=== PATIENT | female | born 2000 | race Caucasian/White ===

== ENCOUNTER 2020-09-19 17:06 | Outpatient (CLI) | payer OTHER, SELFPAY ==
--- NOTE | ~2020-09-19 | XR_ITS ---
XR knee LT min 4V DATE: 09/19/2020 17:54 INDICATION: Anterior knee pain radiating down tibia and fibula TECHNIQUE: Standing sunrise, lateral and AP and PA views COMPARISON: None FINDINGS: No fracture or dislocation or joint effusion. Joint spaces are preserved. No radiopaque int ra-articular loose body or chondrocalcinosis. IMPRESSION: Negative Reviewed, dictated and finalized at location A. ECTIONS ASSOCIATE IMPRESSION: Negative
--- NOTE | ~2020-09-19 | XR_ITS ---
XR knee RT min 4V DATE: 09/19/2020 17:54 INDICATION: Anterior knee pain radiating down to lower leg TECHNIQUE: Kila and standing AP, PA and lateral views COMPARISON: None FINDINGS: No fracture or dislocation. Joint spaces are preserved. No radiopaque intra-articular loose body or chondrocalcinosis. No periosteal reaction or bone destruction. Minimal fluid in the suprapatellar bursa is suggested. IMPRESSION: Minimal suprapatellar knee joint effusion is suggested; otherwise negative Reviewed, dictated and finalized at location A. PACKER IMPRESSION: Minimal suprapatellar knee joint effusion is suggested; otherwise n egative
[2020-09-19 18:03] LABS: Anion Gap 5 mmol/L (8-16); Blood Urea Nitrogen 13 mg/dL (7-17); Calcium 9.6 mg/dL (8.4-10.2); Carbon Dioxide 31 mmol/L (22-30); Chloride 104 mmol/L (98-107); Estimated Glomerular Filt Rate > 60; Glucose 105 mg/dL (65-105); Potassium 4.6 mmol/L (3.4-5.0); Sodium 140 mmol/L (137-145)
[2020-09-19 18:06] LABS: Hemoglobin A1C 4.7 % (<5.7)
[2020-09-20 09:01] LABS: Rapid Plasma Reagin Non-Reactive (NonReactive)
== END 2020-09-19 17:07 | disposition home or self-care (01) ==
PROVIDERS: PCP Internal Medicine; Visit Provider Internal Medicine
DX: R20.2 Paresthesia of skin (principal); M25.569 Pain in unspecified knee
CPT/HCPCS: 36415; 73564; 80048; 82607; 83036; 84443; 86592

== ENCOUNTER 2023-05-31 10:40 | Emergency (ER) | payer OTHER, SELFPAY ==
[2023-05-31 10:45] VITALS: BP 135/71; PULSE 86; RESP 16; TEMP 36.7; O2SAT 100
[2023-05-31 12:07] LABS: Basophils Absolute Auto 0.1 K/mm3 (0.0-0.1); Basophils Percent Auto 0.9 % (0.2-1.2); Eosinophils Absolute Auto 0.1 K/mm3 (0-0.3); Eosinophils Percent Auto 2.2 % (0-4.4); Hematocrit 40.1 % (37.0-47.0); Hemoglobin 13.2 g/dL (12.0-15.0); Immature Granulocyte Absolute 0.01 K/mm3 (0.00-0.031); Immature Granulocyte Percent A 0.2 % (0-0.5); Lymphocytes Absolute Auto 1.43 K/mm3 (0.9-3.2); Lymphocytes Percent Auto 26.7 % (18.3-44.2); Mean Corpuscular HGB Conc 32.9 g/dl (32-36); Mean Corpuscular Hemoglobin 29.5 pg (26-34); Mean Corpuscular Volume 89.7 fl (80-100); Mean Platelet Volume 9.7 fl (7.4-10.4); Monocytes Absolute Auto 0.5 K/mm3 (0.1-0.6); Monocytes Percent Auto 9.5 % (2.6-8.5); Neutrophils Absolute Auto 3.2 K/mm3 (1.3-6.7); Neutrophils Percent Auto 60.5 % (45.5-73.1); Platelet Count Result 344 k/mm3 (150-375); Red Blood Count 4.47 M/mm3 (4.2-5.4); Red Cell Distribution Width 12.6 % (11.5-14.5); White Blood Count 5.4 K/mm3 (4.5-10.0)
[2023-05-31 12:17] LABS: Prothrombin Time 13.4 Seconds (11.1-14.7)
[2023-05-31 12:18] LABS: Partial Thromboplastin Time 27.7 SECONDS (22.3-36.8)
[2023-05-31 12:22] LABS: Alanine Aminotransferase 16 U/L (6-35); Albumin Level 4.5 g/dL (3.5-5.1); Alkaline Phosphatase 77 U/L (38-126); Anion Gap 8 mmol/L (8-16); Aspartate Amino Transferase 22 U/L (14-36); Bilirubin,Total 0.4 mg/dL (0.2-1.3); Blood Urea Nitrogen 14 mg/dL (7-17); Calcium 9.1 mg/dL (8.4-10.2); Carbon Dioxide 26 mmol/L (22-30); Chloride 105 mmol/L (98-107); Estimated CRCL calculation 107 ml/min; Estimated Glomerular Filt Rate > 60; Glucose 94 mg/dL (65-110); Potassium 3.8 mmol/L (3.4-5.0); Sodium 139 mmol/L (137-145)
[2023-05-31 12:37] LABS: Beta HCG Quantitative < 2.39 mIU/ML
--- NOTE | 2023-05-31 13:42 | ED.FEMALEGU ---
HPI - Female Genitourinary General Chief complaint: Vaginal Bleeding Stated complaint: vb Time Seen by Provider: 05/31/23 11:27 History of Present Illness HPI Narrative: Pt says she has had heavy vaginal bleeding and crampy lower abdominal julito for 2-3 days. Pt says she had some light spotting when she should have had her period on 05/17 but this resolved. Pt says the bleeding started and got heavier 2-3 days ago. Pt denies urinary symptoms. Related Data Allergies Allergy/AdvReac Type Severity Reaction Status Date / Time No Known Allergies Allergy Verified 05/31/23 11:09 Review of Systems Review of Systems: All systems reviewed & are unremarkable except as noted in HPI and below PMFSH Past Medical History Medical History History of chlamydia Family History Family History (Updated 02/19/22 @ 13:41 by Ashley King MA) Other Breast cancer Cerebrovascular accident Diabetes mellitus Heart disease Hypertension Social History Social History (Updated 02/19/22 @ 13:42 by Ashley King MA) Smoking status: Never smoker Alcohol intake: never Substance use: never Substance use type: does not use Living arrangements: with family Occupation/Education: occupation 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 Gender identity (if verbalized by the patient): Female Sexual Orientation (if Verbalized by the Patient): Straight or Heterosexual Exam Const: General: healthy appearing and no acute distress Nutritional Appearance: well nourished Orientation/consciousness: patient oriented x3 Limitations: no limitations Chest: Chest palpation & inspection: normal inspection of the chest Resp: Effort & Inspection: normal respiratory effort Auscultation: clear to auscultation bilaterally Cardio: Rate: regular rate Rhythm: regular rhythm GI: GI Palp: Yes Soft to palpation and Yes Tenderness to palpation present (GI) (minimal suprapubic) Auscultation: normal bowel sounds : Speculum Exam - Vagina: normal appearance of the vagina and vaginal bleeding (mild with some clots) Speculum Exam - Cervix: normal appearance of the cervix and Cervical os closed Bimanual Exam- Adnexa, other: no masses Skin: General skin exam: normal color Rashes: no rashes Neuro: General: patient oriented x3, moves all extremities, no meningeal signs and no focal motor deficits Cranial nerves: Yes Nystagmus not present Speech: normal speech Extrem: General: normal to inspection and no clubbing, cyanosis or edema Psych: Appearance: grossly normal Mental Status: mental status grossly normal Affect: normal affect Attitude: cooperative Course Vital Signs Vital signs: Vital Signs Temperature 98.0 F 05/31/23 10:45 Pulse Rate 86 05/31/23 10:45 Respiratory Rate 16 05/31/23 10:45 Blood Pressure 135/71 05/31/23 10:45 Pulse Oximetry 100 05/31/23 10:45 Oxygen Delivery Room Air 05/31/23 10:45 Temperature 98.0 F 05/31/23 10:45 Pulse Rate 67 05/31/23 13:50 Respiratory Rate 18 05/31/23 13:50 Blood Pressure 105/66 05/31/23 13:50 Pulse Oximetry 100 05/31/23 13:50 Oxygen Delivery Room Air 05/31/23 10:45 MDM - Female Genitourinary MDM Narrative Medical decision making narrative: HCG neg labs look ok Differential Diagnosis Differential diagnosis: Likely urinary tract infection, ovarian cyst, vaginitis, dysmenorrhea and other (ectopic ) Lab Data Attestation: I reviewed the patient's lab results. 05/31/23 11:59 05/31/23 11:59 Labs: Lab Results 05/31/23 Range/Units 11:59 WBC 5.4 (4.5-10.0) K/mm3 RBC 4.47 (4.2-5.4) M/mm3 Hgb 13.2 (12.0-15.0) g/dL Hct 40.1 (37.0-47.0) % MCV 89.7 (80-100) fl MCH 29.5 (26-34) pg MCHC 32.9 (32-36) g/dl RDW 12.6 (11.5-14.5) % Plt Count 344 (150-375) k/mm3 MPV 9.7 (7.4-10.4) fl Immature Gran % (Auto) 0.2
[2023-05-31 13:50] VITALS: BP 105/66; PULSE 67; RESP 18; O2SAT 100
== END 2023-05-31 13:51 | disposition home or self-care (01) ==
PROVIDERS: Emergency Provider Emergency Medicine
DX: N93.9 Abnormal uterine and vaginal bleeding, unspecified (principal)
CPT/HCPCS: 36415; 80053; 84702; 85025; 85610; 85730; 99283

== ENCOUNTER → 2023-07-10 07:25 | Outpatient (CLI) | payer OTHER, SELFPAY ==
--- NOTE | ~2023-07-10 | US_ITS ---
Pelvic ultrasound. Clinical History: Abnormal uterine bleeding Technique: Realtime transabdominal and transvaginal scanning of the pelvis was performed. Color flow Doppler and Doppler spectral analysis were performed. Findings: The uterus is anteverted. The endometrial stripe has a thickness of 6 mm. Questionable arc uate or septate uterus. No focal mass is identified. The right ovary measures 2.8 x 2.8 x 1 point cm. No significant right ovarian or adnexal mass is see n. The left ovary measures 4.3 x 3.6 x 3.0 cm. Left ovarian cyst measures approximately 2.8 cm in diamet er. There is no evidence of free fluid in the cul de sac. Impression: 2.8 cm left ovarian cyst. Questionable arcuate or septate uterus. Reviewed, dictated and finalized at location . Impression: 2.8 cm left ovarian cyst. Questionable arcuate or septate uterus.
== END ==
PROVIDERS: PCP Advanced Practice Midwife; Visit Provider Advanced Practice Midwife
DX: N93.8 Other specified abnormal uterine and vaginal bleeding (principal); R10.2 Pelvic and perineal pain; N83.202 Unspecified ovarian cyst, left side
CPT/HCPCS: 76856

== ENCOUNTER 2024-09-22 13:44 | Outpatient (CLI) | payer OTHER, SELFPAY ==
--- NOTE | ~2024-09-22 | US_ITS ---
EXAMINATION: US pelvic complete w TV DATE: 09/22/2024 14:52 INDICATION: Pelvic and perineal pain TECHNIQUE: Multiple transabdominal and endovaginal sonographic images of the pelvis were obtained. COMPARISON: None. FINDINGS: The uterus measures 7.3 x 2.9 x 6.1 cm. The endometrial complex measures 6 mm in thickness. There is 11 mm indentation of the central portion of the fundal margin of the endometrial complex consistent with a septate uterus. The right ovary measures 3.0 x 1.7 x 1.9 cm. The left ovary measures 3.6 x 2.3 x 3.1 cm. 2.6 x 2.4 x 2.3 cm very hypoechoic likely complex cystic lesion in the left ovary without internal vascular flow on color Doppler and with mild posterior acoustic enhancement. Vascular flow i dentified in both ovaries on color Doppler. There is no free fluid in the pelvis. IMPRESSION: 1. Septate uterus with 11 mm indentation of the chondral margin of the endometrial canal. 2. 2.6 cm hypoechoic left ovarian lesion most likely a hemorrhagic cyst. Consider 6-12 week follow-up ultrasound to document resolution. Reviewed, dictated and finalized at location B. OL SPEECH THERAPIST IMPRESSION: 1. Septate uterus with 11 mm indentation of the chondral margin of the endometr ial canal. 2. 2.6 cm hypoechoic left ovarian lesion most likely a hemorrhagic cyst. Consid er 6-12 week follow-up ultrasound to document resolution.
== END 2024-09-22 13:45 | disposition home or self-care (01) ==
PROVIDERS: Visit Provider Obstetrics & Gynecology
DX: R10.2 Pelvic and perineal pain (principal)
CPT/HCPCS: 76830; 76856

== ENCOUNTER 2024-10-20 15:31 | Outpatient (CLI) | payer OTHER, SELFPAY ==
--- NOTE | ~2024-10-20 | MR_ITS ---
EXAMINATION: MR pelvis wo/w con DATE: 10/20/2024 16:44 INDICATION: Septate uterus. TECHNIQUE: Magnetic resonance imaging (MRI) of the pelvis was performed without and with 14 mL MultiH ance intravenous contrast. COMPARISON: Ultrasound 09/22/2024, 07/10/2023 FINDINGS: There are no dilated loops of bowel. The ovaries are normal. The uterine fundus has a convex outer co ntour. In the fundus, the myometrium dips 11 mm into the endometrial complex, consistent with an arcu ate uterus. The endometrial complex measures 9 mm in thickness. There is physiologic fluid in the pel vis. There are no pathologically enlarged lymph nodes. IMPRESSION: 1. Arcuate uterus. Reviewed, dictated and finalized at location A. NEERING INTERN IMPRESSION: 1. Arcuate uterus.
--- OUTSIDE RECORDS SUMMARY | 2024-10-24 01:52 | XMS_ITS | Clinical Summary ---
Author Organization [facility] Address [address] [place] [address] Phone Care Team Providers Care Forest Resources Professor Name Role Phone Provider, None Primary Care Provider Unavailabl e Allergies No known active allergies Medications ondansetron (ZOFRAN-ODT) 4 MG TABLET DISPERSIBLE Take 1 Tablet by mouth every 8 hours as needed for Nausea - 1st line. 10 Tablet 02/02/2024 Active Social History Tobacco Use Types Packs/Day Years Used Date Smoking Tobacco: Never Smokeless Tobacco: Never Tobacco Cessation:Counseling Given: Not Answered Alcohol Use Standard Drinks/Week Comments Never 0 (1 standard drink = 0.6 oz pur e alcohol) Comments Unknown Sex and Gender Information Value Date Recorded Sex Assigned at Not on file Legal Sex Female 7:16 PM CDT Gender Identity Not on file Sexual Orientation Not on file Last Filed Vital Signs Vital Sign Reading Time Taken Comments Blood Pressure 125/68 02/02/2024 7:32 PM CDT Pulse 83 02/02/2024 7:32 PM CDT Temperature 37.2 ??C (99 ??F) 02/02/2024 7:32 PM CDT Respiratory Rate 19 02/02/2024 7:32 PM CDT Oxygen Saturation 99% 02/02/2024 7:32 PM CDT Inhaled Oxygen Concentration - - Weight 65.8 kg (145 lb) 02/02/2024 7:32 PM CDT Height 152.4 cm (5') 02/02/2024 7:32 PM CDT Body Mass Index 28.32 02/02/2024 7:32 PM CDT Plan of Treatment Health Maintenance Due Date Last Done Comments Hepatitis C Virus (HCV) Screening 1999 Pap Smear 2020 Influenza Immunization (#1) 2024 01/0 07/2024, 08/26/2018, 09/08/2017, Additional history exists SARS-COV-2 Immunization (2023- season) 2024 Respiratory Syncytial Virus (RSV) Immunization (Adult) (1 - 1-dose 75+ series) 2074 Pneumococcal Immunization Combined Aged Out 09/27/2000, 06/04/2000, 05/04/2000 No longer eligible based on patient's age to complete this topic Hepatitis B Immunization Completed 009, 05/04/2000, 04/03/2000, Additional history exists DTaP/Tdap/Td Immunization Discontinued 2009, 04/21/2004, 03/21/2001, Additional history exists TdaP Immunization Completed 06/16/2010 Human Papillomavirus (HPV) Immunization Completed 09/13/2015, 09/04/2013, 07/03/2013 Meningococcal Immunization (ACWY) Completed 09/13/2015, 07/03/2013 Rotavirus Immunization Aged Out No lo nger eligible based on patient's age to complete this topic Insurance Care Teams Forest Resources Professor Relationship Specialty Start Date End Date Provider, None MA PCP - General 02/02/24
--- OUTSIDE RECORDS SUMMARY | 2024-10-24 01:52 | XMS_ITS | Clinical Summary ---
Author Organization [facility] Address [address] [place] [address] Care Team Providers Care Electrician Supervisor Substation Name Role Phone Verito Aguilar MD Primary Care Provider [phone] Source Comments [facility],non-owned Affiliates and Associated Physician Practices is amultiple site organization consisting of ambulatory clinics and hospital sitesin [place], [place] and [place]. This disclosure is being madepursuant to the Care Everywhere program and may not contain all information available regarding this patient. Last updated 18.[facility] Allergies No known active allergies Medications * Be aware that medications may not be up to date on this document. Alwaysverify current medications with the patient. Medication Sig Dispensed Refills Start Date End Date Status albuterol HFA (PROVENTIL;VENTOLIN; PROAIR) 108 (90 Base) MCG/ACT inhaler Inhale 2 puffs by mouth every 4 hours as needed 1 Inhaler 01/23/2020 Active albuterol (PROVENTIL;VENTOLIN) (2.5 MG/3ML) 0.083% nebulizer solution Inhale 2.5 mg by mouth every 4 hours as needed for Shortness of Breath 25 vial 01/23/2020 Active SUMAtriptan Succinate (IMITREX PO) Active Ibuprofen (MOTRIN PO) Active Social History Tobacco Use Types Packs/Day Years Used Date Smoking Tobacco: Never Smokeless Tobacco: Never Sex and Gender Information Value Date Recorded Sex Assigned at Not on file Gender Identity Not on file Sexual Orientation Not on file Last Filed Vital Signs Vital Sign Reading Time Taken Comments Blood Pressure 104/60 07/03/2020 9:37 AM CDT Pulse 95 07/03/2020 9:37 AM CDT Temperature 37.3 ??C (99.1 ??F) 07/03/2020 9:37 AM CD T Respiratory Rate 16 07/03/2020 9:37 AM CDT Oxygen Saturation 97% 07/03/2020 9:37 AM CDT Inhaled Oxygen Concentration - - Weight 59 kg (130 lb) 07/03/2020 9:37 AM CDT Height 152.4 cm (5') 07/03/2020 9:37 AM CDT Body Mass Index 25.39 07/03/2020 9:37 AM CDT Plan of Treatment Health Maintenance Due Date Last Done Comments PAP SMEAR 1999 HIV SCREENING 2014 HPV VACCINE (1 - 3-dose series) 2014 CHLAMYDIA/GONORRHEA SCREENING 2015 HEPATITIS C SCREENING 06/20/2017 DTAP/TDAP/TD VACCINES (1 - Tdap) 2018 HEPATITIS B VACCINE (1 of 3 - 19+ 3-dose series) 2018 DEPRESSION SCREENING 11/08/2023 COVID-19 VACCINE (1 - 2023-2 5 season) 2024 INFLUENZA VACCINE (#1) 2024 09/08/2017 ZOSTER VACCINE (1 of 2) 2049 HIB VACCINE Aged Out No longer eligi ble based on patient's age to complete this topic MENINGOCOCCAL VACCINE Aged Out No nilesh edinson eligible based on patient's age to complete this topic PNEUMOCOCCAL VACCINE Aged Out No long er eligible based on patient's age to complete this topic Care Teams Electrician Supervisor Substation Relationship Specialty Start Date End Date Verito Aguilar MD PCP - General Internal Medicine 8/26/20
--- OUTSIDE RECORDS SUMMARY | 2024-10-24 01:52 | XMS_ITS | Encounter Summary ---
Author Organization [facility] Address [facility] [place] [address] Care Team Providers Care Manager Collection Name Role Phone Abiel Sharp MD Primary Care Provider [phone] Reason for Visit * Reason Onset Date Comments Returned Call 01/25/2020 Encounter Details Date Type Department Care Team (Late st Contact Info) Description 01/25/2020 Telephone [facility] [address] [place] [address] Nancy Law APRN-CNP [address] [place] [address] Returned Call Social History Tobacco Use Types Packs/Day Years Used Date Smoking Tobacco: Never Smokeless Tobacco: Never Sex and Gender Information Value Date Recorded Sex Assigned at Not on file Gender Identity Not on file Sexual Orientation Not on file documented as of this encounter Miscellaneous Notes * Telephone Encounter - Nancy Aguilar APRN-CNP - 01/25/2020 3:08 PM CDT Patient states she is using her inhaler more than ever before, and she has been feeling worse sincetaking the abx and inhaler. She states she does have asthma, and nothing is getting better. Advisedpatient to been seen in the ER for further testing and evaluation, and possible COVID-19 testing. Patient verbalized understanding documented in this encounter Plan of Treatment Not on file documented as of this encounter Visit Diagnoses Not on filedocumented in this encounter Care Teams Manager Collection Relationship Specialty Start Date End Date Abiel Sharp MD [address] [id number] PCP - General Pediatrics 06/18/18 07/02/20 documented as of this encounter
--- OUTSIDE RECORDS SUMMARY | 2024-10-24 01:52 | XMS_ITS | Encounter Summary ---
Author Organization [facility] Address [facility] [place] [address] Care Team Providers Care Regional Safety Manager Name Role Phone Abiel Sharp MD Primary Care Provider [phone] Reason for Visit * Reason Onset Date Comments Follow-up 01/25/2020 Encounter Details Date Type Department Care Team (Late st Contact Info) Description 01/25/2020 Telephone [facility] [address] [place] [id number] Nancy Law APRN-CNP [address] [place] [address] Follow-up Social History Tobacco Use Types Packs/Day Years Used Date Smoking Tobacco: Never Smokeless Tobacco: Never Sex and Gender Information Value Date Recorded Sex Assigned at Not on file Gender Identity Not on file Sexual Orientation Not on file documented as of this encounter Miscellaneous Notes * Telephone Encounter - Nancy Aguilar APRN-CNP - 01/25/2020 11:08 AM CDT Courtesy follow-up phone call made to patient. Message left advising patient to call service [facility] [phone] if they have any questions or concerns. ONEAL Hdz 01/25/2020 11:09 AM documented in this encounter Plan of Treatment Not on file documented as of this encounter Visit Diagnoses Not on filedocumented in this encounter Care Teams Regional Safety Manager Relationship Specialty Start Date End Date Abiel Sharp MD [address] [id number] PCP - General Pediatrics 06/18/18 07/02/20 documented as of this encounter
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
--- OUTSIDE RECORDS SUMMARY | 2024-10-24 01:52 | XMS_ITS | Encounter Summary ---
Author Organization [facility] Address [facility] [place] [address] Care Team Providers Care Radio Division Officer Name Role Phone Verito Aguilar MD Primary Care Provider [phone] Reason for Visit * Reason Onset Date Comments Follow-up 07/05/2020 Encounter Details Date Type Department Care Team (Late st Contact Info) Description 07/05/2020 Telephone [facility] [address] [place] [address] Nancy Law APRN-CNP [address] [place] [address] Follow-up Social History Tobacco Use [...] AM CDT documented as of this encounter Miscellaneous Notes * Telephone Encounter - Nancy Aguilar APRN-CNP - 07/05/2020 4:00 PM CDT Courtesy follow-up phone call made to patient. She states she is feeling a lot better than before. Advised her to call service center at [phone] if she has any further questions or concerns. ONEAL Hdz 07/05/2020 4:01 PM documented in this encounter Plan of Treatment Not on file documented as of this encounter Visit Diagnoses Not on filedocumented in this encounter Care Teams Radio Division Officer Relationship Specialty Start Date End Date Verito Aguilar MD PCP - General Internal Medicine 07/03/20 documented as of this encounter
--- OUTSIDE RECORDS SUMMARY | 2024-10-24 01:52 | XMS_ITS | Encounter Summary ---
Author Organization [facility] Address [facility] [place] [address] Care Team Providers Care Gearman Name Role Phone Abiel Sharp MD Primary Care Provider [phone] Encounter Details Date Type Department Care Team (Latest Contact Info) Description 07/02/2020 Travel Social History Tobacco Use Types Packs/Day Years [...] have Coronavirus / COVID-19? No / Unsure 07/02/2020 4:04 PM CDT documented as of this encounter Plan of Treatment Not on file documented as of this encounter Visit Diagnoses Not on filedocumented in this encounter Care Teams Gearman Relationship Specialty Start Date End Date Abiel Sharp MD [address] [address] PCP - General Pediatrics 06/18/18 07/02/20 documented as of this encounter
--- OUTSIDE RECORDS SUMMARY | 2024-10-24 01:52 | XMS_ITS | Encounter Summary ---
Author Organization [facility] Address [facility] [facility] [place] [address] Care Team Providers Care Supervisor Production Name Role Phone Abiel Sharp MD Primary Care Provider [phone] Reason for Visit * Reason Comments Cough Encounter Details Date Type Department Care Team (Late st Contact Info) Description 01/23/2020 11:40 AM CDT Office Visit [facility] AT [address] [address] Provider, Alexia Exp Tomyriaz Mild intermittent asthma with acute exacerbation (HCC) (Primary Dx); Acute non-recurrent maxillary sinusitis Social History Tobacco Use Types Packs/Day Years Used Date Smoking Tobacco: Never Smokeless Tobacco: Never Sex and Gender Information Value Date Recorded Sex Assigned at Not on file Gender Identity Not on file Sexual Orientation Not on file documented as of this encounter Last Filed Vital Signs Vital Sign Reading Time Taken Comments Blood Pressure 100/64 01/23/2020 11:51 AM CDT Pulse 85 01/23/2020 11:51 AM CDT Temperature 37.3 ??C (99.2 ??F) 01/23/2020 11:51 AM C DT Respiratory Rate 16 01/23/2020 11:51 AM CDT Oxygen Saturation 98% 01/23/2020 11:51 AM CDT Inhaled Oxygen Concentration - - Weight 56.7 kg (125 lb) 01/23/2020 11:51 AM CDT Height 152.4 cm (5') 01/23/2020 11:51 AM CDT Body Mass Index 24.41 01/23/2020 11:51 AM CDT documented in this encounter Patient Instructions * Patient Instructions* Neida Rodríguez, FACTORY LAY OUT ENGINEER-[employer]EDGE BOAT CAPTAIN - 01/23/2020 11:59 AM CDT Images from the original note were not included. Drink plenty of fluids to help thin secretions. May take Tylenol or Ibuprofen for fever or pain as directed per package instructions Recommend daily use of OTC intranasal saline irrigation per package instructions May take OTC antihistamines such as Zyrtec, Lesli, or Claritin as directed per package instructions, for runny nose or allergy symptoms Follow up with Abiel Sharp MD if symptoms worsen or do not completely resolve. GO TO EMERGENCY ROOM OR CALL 911 WITH ANY OF THE FOLLOWING SYMPTOMS: HIGH, PERSISTENT FEVER >102; SWELLING, INFLAMMATION, OR REDNESS AROUND EYES, ABNORMAL EYE MOVEMENTS, VISION CHANGES (DOUBLE VISION OR IMPAIRED VISION); SEVERE HEADACHE; ALTERED MENTAL STATUS. THESE ARE SIGNS OF A RARE, BUT SERIOUS COMPLICATION AND REQUIRES IMMEDIATE EMERGENCY ATTENTION. Patient Education Asthma PERSONNEL COORDINATOR: Asthma is a lung disease that makes breathing difficult. Chronic inflammation and reactions to triggers narrow the airways in your lungs. Asthma can become life-threatening if it is not managed. Cough-variant asthma is a type of asthma that causes a dry cough that keeps coming back. A dry cough may be your only symptom, or you may also have chest tightness. These symptoms may be caused by exercise or exposure to odors, allergens, or respiratory tract infections. Cough-variant asthma is treated the same way as typical asthma. Common symptoms include the following: ?? Coughing ?? Wheezing ?? Shortness of breath ?? Chest tightness Call your local emergency number (911 in the ) if: ?? You have severe shortness of breath. ?? Your lips or nails turn blue or dawkins. ?? The skin around your neck and ribs pulls in with each breath. ?? You have shortness of breath, even after you take your short-term medicine as directed. ?? Your peak flow numbers are in the red zone of your AAP. Call your doctor if: ?? You run out of medicine before your next refill is due. ?? Your symptoms get worse. ?? You need to take more medicine than usual to control your symptoms. ?? You have questions or concerns about your condition or care. Treatment for asthma will depend on how severe your asthma is. Medicine may decrease inflammation, open airways, and make it easier to breathe. Medicines may be inhaled, taken as a pill, or injected.Short-term medicines relieve your symptoms quickly. Long-term medicines are used to prevent future attacks. You may also need medicine to help control your allergies. Manage and prevent future asthma attacks: ?? Follow your asthma action plan. This is a written plan that you and your healthcare provider create. It explains which medicine you need and when to change doses if necessary. It also explains howyou can monitor symptoms and use a peak flow meter. The meter measures how well your lungs are working. ?? Manage other health conditions , such as allergies, acid reflux, and sleep apnea. ?? Identify and avoid triggers. These may include pets, dust mites, mold, and cockroaches. ?? Do not smoke or be around others who smoke. Nicotine and other chemicals in cigarettes and cigars can cause lung damage. Ask your healthcare provider for information if you currently smoke and need help to quit. E-cigarettes or smokeless tobacco still contain nicotine. Talk to your healthcare provider before you use these products. ?? Ask about the flu vaccine. The flu can make your asthma worse. You may need a yearly flu shot. Follow up with your healthcare provider as directed: You will need to return to make sure your medicine is working and your symptoms are controlled. You may be referred to an asthma or data review specialist. You may be asked to keep a record of your peak flow values and bring it with you to your appointments. Write down your questions so you remember to ask them during your visits. ?? Copyright [employer] 2019 Information is for End User's use only and may not be sold, redistributed or otherwise used for commercial purposes. All illustrations and images included in CareNotes?? are the copyrighted property of [employer]. or [employer] The above information is an health care aide only. It is not intended as medical advice for individual conditions or treatments. Talk to your doctor, nurse or pharmacist before following any medical regimen to see if it is safe and effective for you. Patient Education Sinusitis PERSONNEL COORDINATOR: Sinusitis is inflammation or infection of your sinuses. It is most often caused by a virus. Acute sinusitis may last up to 12 weeks. Chronic sinusitis lasts longer than 12 weeks. Recurrent sinusitis means you have 4 or more times in 1 year. Common symptoms include the following: ?? Fever ?? Pain, pressure, redness, or swelling around the forehead, cheeks, or eyes ?? Thick yellow or green discharge from your nose ?? Tenderness when you touch your face over your sinuses ?? Dry cough that happens mostly at night or when you lie down ?? Headache and face pain that is worse when you lean forward ?? Tooth pain, or pain when you chew Seek care immediately if: ?? Your eye and eyelid are red, swollen, and painful. ?? You cannot open your eye. ?? You have vision changes, such as double vision. ?? Your eyeball bulges out or you cannot move your eye. ?? You are more sleepy than normal, or you notice changes in your ability to think, move, or talk. ?? You have a stiff neck, a fever, or a bad headache. ?? You have swelling of your forehead or scalp. Contact your healthcare provider if: ?? Your symptoms do not improve after 3 days. ?? Your symptoms do not go away after 10 days. ?? You have nausea and are vomiting. ?? Your nose is bleeding. ?? You have questions or concerns about your condition or care. Treatment for sinusitis: Your symptoms may go away on their own. Your healthcare provider may recommend watchful waiting for up to 10 days before starting antibiotics. You may need any of the following: ?? Acetaminophen decreases pain and fever. It is available without a doctor's order. Ask how much to take and how often to take it. Follow directions. Read the labels of all other medicines you are using to see if they also contain acetaminophen, or ask your doctor or pharmacist. Acetaminophen can cause liver damage if not taken correctly. Do not use more than 4 grams (4,000 milligrams) total of acetaminophen in one day. ?? NSAIDs , such as ibuprofen, help decrease swelling, pain, and fever. This medicine is available with or without a doctor's order. NSAIDs can cause stomach bleeding or kidney problems in certain people. If you take blood thinner medicine, always ask your healthcare provider if NSAIDs are safe foryou. Always read the medicine label and follow directions. ?? Nasal steroid sprays may help decrease inflammation in your nose and sinuses. ?? Decongestants help reduce swelling and drain mucus in the nose and sinuses. They may help you breathe easier. ?? Antihistamines help dry mucus in the nose and relieve sneezing. ?? Antibiotics help treat or prevent a bacterial infection. ?? Take your medicine as directed. Contact [...] nasal passages with a saline (salt water) solution or distilled water. Do not use tap water. This will help thin the mucus in [...] healthcare provider before you use these products. Prevent the spread of germs that cause sinusitis: Wash your hands often with soap and water. Wash your hands after you use the bathroom, change a child's diaper, or sneeze. Wash your hands before youprepare or eat food. Follow up with your healthcare provider as directed: You may be referred to an ear, nose, and throat specialist. Write down your questions so you remember to ask them during your visits. ?? Copyright [employer] 2018 Information is for End User's use only and may not be sold, redistributed or otherwise used for commercial purposes. All illustrations and images included in CareNotes?? are the copyrighted property of [employer]. or [employer] The above information is an health care aide only. It is not intended as medical advice for individual conditions or treatments. Talk to your doctor, nurse or pharmacist before following any medical regimen to see if it is safe and effective for you. documented in this encounter Progress Notes * Neida Rodríguez APRN-CNP - 01/23/2020 11:48 AM CDT Images from the original note were not included. Subjective: James Gardner is a 19 year old female who presents to clinic today for Chief Complaint Patient presents with ??? Cough . James Gardner is here for evaluation of post nasal drip, non productive cough. PCP is Abiel Sharp MD. She states the Onset was: 2 days and course is gradually worsening. She is drinking plenty of fluids.. Past History of asthma. She is a non-smoker. The pain is described as none, and is 0/10 in intensity. OTC- none. Sick Contacts: No known sick contacts. Patient states she has been out of her inhaler and neb soln for awhile. Patient states she has had post nasal drainage and mild wheezing. Patient also states she has had congestion, MURILLO, and sinus pain for 2-3 weeks. Patient denies any recent travel or contact with any individuals with known or suspected COVID-19 Past Medical History: Diagnosis Date ??? Asthma ??? MRSA (methicillin resistant staph aureus) culture positive ??? Murmur, cardiac ??? Seasonal allergies No family history on file. Current Outpatient Medications Medication Sig Dispense Refill ??? albuterol (PROVENTIL;VENTOLIN) (2.5 MG/3ML) 0.083% nebulizer solution Inhale 2.5 mg by mouth every 4 hours as needed for Shortness of Breath 25 vial 0 ??? albuterol HFA (PROVENTIL;VENTOLIN;PROAIR) 108 (90 Base) MCG/ACT inhaler Inhale 2 puffs by mouthevery 4 hours as needed 1 Inhaler 0 ??? ALBUTEROL IN ??? amoxicillin-clavulanate (AUGMENTIN) 875-125 MG tablet Take 1 tablet by mouth 2 times daily withmorning and evening meal for 7 days 20 tablet 0 ??? Famotidine (PEPCID PO) No current facility-administered medications for this visit. No Known Allergies Social History Socioeconomic History ??? Marital status: [...] file Gets together: Not on file Attends [employer] service: Not on file Active member of [...] Social History Narrative ??? Not on file Review of Systems Constitutional: Negative for fatigue, fevers, chills, malaise. Eyes: Negative Ears, nose, mouth, and throat: Positive for post nasal drainage, sinus pain, congestion Respiratory: Positive for acute cough, asthma, wheezing Cardiovascular: Negative Hematologic/lymphatic: Negative Objective: BP 100/64 Pulse 85 Temp 99.2 ??F (37.3 ??C) Resp 16 Ht 1.524 m (5') Wt 56.7 kg (125 lb) SpO2 98% BMI 24.41 kg/m2 General appearance: alert, cooperative, no distress, oriented to person, place, and time Head: normocephalic, without trauma Eyes: sclera and conjunctiva clear Ears: canals clear, tympanic membranes normal, hearing intact to voice Nose: nares open; no septal deviation is noted, nasal mucosa not inflamed, clear rhinorrhea, maxillary sinus pain on right Throat: no mucous membrane abnormalities, post nasal drainage present Neck: supple Nodes: mild, benign-appearing anterior cervical adenopathy Lungs: breath sounds normal and symmetric; no rales or wheezes Heart: regular rhythm, normal S1 and S2, without murmurs, gallops or rubs Assessment: Encounter Diagnoses Name Primary? Mild intermittent asthma with acute exacerbation Yes ??? Acute non-recurrent maxillary sinusitis Plan: Albuterol inhaler and nebulizer soln refilled Keep appointment with new PCP for end of February Drink plenty of fluids to help thin secretions. May take Tylenol or Ibuprofen for fever or pain as directed per package instructions Recommend daily use of OTC intranasal saline irrigation per package instructions May take OTC antihistamines such as Zyrtec, Lesli, or Claritin as directed per package instructions, for runny nose or allergy symptoms Reviewed education materials and instructions with patient and answered all questions. James Gardner verbalized understanding and agrees with plan. Follow up with Abiel Sharp MD if symptoms worsen or do not completely resolve. GO TO EMERGENCY ROOM OR CALL 911 WITH ANY OF THE FOLLOWING SYMPTOMS: HIGH, PERSISTENT FEVER >102; SWELLING, INFLAMMATION, OR REDNESS AROUND EYES, ABNORMAL EYE MOVEMENTS, VISION CHANGES (DOUBLE VISION OR IMPAIRED VISION); SEVERE HEADACHE; ALTERED MENTAL STATUS. THESE ARE SIGNS OF A RARE, BUT SERIOUS COMPLICATION AND REQUIRES IMMEDIATE EMERGENCY ATTENTION. Orders Placed This Encounter ??? albuterol HFA (PROVENTIL;VENTOLIN;PROAIR) 108 (90 Base) MCG/ACT inhaler Sig: Inhale 2 puffs by mouth every 4 hours as needed Dispense: 1 Inhaler Refill: 0 ??? albuterol (PROVENTIL;VENTOLIN) (2.5 MG/3ML) 0.083% nebulizer solution Sig: Inhale 2.5 mg by mouth every 4 hours as needed for Shortness of Breath Dispense: 25 vial Refill: 0 ??? amoxicillin-clavulanate (AUGMENTIN) 875-125 MG tablet Sig: Take 1 tablet by mouth 2 times daily with morning and evening meal for 7 days Dispense: 20 tablet Refill: 0 Neida Rodríguez DNP, SATELLITE SPECIALIST-BC 01/23/2020 1:45 PM documented in this encounter Plan of Treatment Not on file documented as of this encounter Visit Diagnoses Diagnosis Mild intermittent asthma with acute exacerbation (HCC)- Primary Unspecified asthma, with exacerbation Acute non-recurrent maxillary sinusitis documented in this encounter Care Teams Supervisor Production Relationship Specialty Start Date End Date Abiel Sharp MD [address] [id number] PCP - General Pediatrics 06/18/18 07/02/20 documented as of this encounter
--- OUTSIDE RECORDS SUMMARY | 2024-10-24 01:52 | XMS_ITS | Encounter Summary ---
Author Organization [facility] Health Address [facility] [place] [address] Care Team Providers Care Comsec Manager Name Role Phone Verito Aguilar MD Primary Care Provider [phone] Encounter Details Date Type Department Care Team (Latest Contact Info) Description 07/03/2020 Travel Social History Tobacco Use Types Packs/Day [...] AM CDT documented as of this encounter Plan of Treatment Not on file documented as of this encounter Visit Diagnoses Not on filedocumented in this encounter Care Teams Comsec Manager Relationship Specialty Start Date End Date Verito Aguilar MD PCP - General Internal Medicine 07/03/20 documented as of this encounter
--- OUTSIDE RECORDS SUMMARY | 2024-10-24 01:52 | XMS_ITS | Encounter Summary ---
Author Organization [facility] Address [address] [place] [address] Care Team Providers Care Geophysical Laboratory Supervisor Name Role Phone Abiel Sharp MD Primary Care Provider [phone] Reason for Visit * Reason Onset Date Comments Returned Call 01/25/2020 Encounter Details Date Type Department Care Team (Late st Contact Info) Description 01/25/2020 Telephone [facility] [address] [place] [address] Provider, Alexia Exp Nameoki Returned Call Social History Tobacco Use Types Packs/Day Years Used Date Smoking Tobacco: Never Smokeless Tobacco: Never Sex and Gender Information Value Date Recorded Sex Assigned at Not on file Gender Identity Not on file Sexual Orientation Not on file documented as of this encounter Miscellaneous Notes * Telephone Encounter - Nancy Aguilar APRN-CNP - 01/25/2020 2:58 PM CDT Returned all no answer. Left message * Telephone Encounter - Laura Valencia - 01/25/2020 1:32 PM CDT Pt is returning call and has some questions. documented in this encounter Plan of Treatment Not on file documented as of this encounter Visit Diagnoses Not on filedocumented in this encounter Care Teams Geophysical Laboratory Supervisor Relationship Specialty Start Date End Date Abiel Sharp MD [address] [facility] [address] [place] [address] PCP - General Pediatrics 06/18/18 07/02/20 documented as of this encounter
--- OUTSIDE RECORDS SUMMARY | 2024-10-24 01:52 | XMS_ITS | Encounter Summary ---
Author Organization [facility] Health Address [facility] [facility] [place] [address] Care Team Providers Care Life Agent Name Role Phone Abiel Sharp MD Primary Care Provider Encounter Details Date Type Department Care Team (Latest Contact Info) Description 01/23/2020 Travel Social History Tobacco Use Types Packs/Day Years Used Date Smoking Tobacco: Never Smokeless Tobacco: Never Sex and Gender Information Value Date Recorded Sex Assigned at Not on file Gender Identity Not on file Sexual Orientation Not on file documented as of this encounter Plan of Treatment Not on file documented as of this encounter Visit Diagnoses Not on filedocumented in this encounter Care Teams Life Agent Relationship Specialty Start Date End Date Abiel Sharp MD [address] [address] PCP - General Pediatrics 06/18/18 07/02/20 documented as of this encounter
--- OUTSIDE RECORDS SUMMARY | 2024-10-24 01:52 | XMS_ITS | Patient Health Summary ---
Author Organization [facility] Address [address] [facility] [place] [address] Care Team Providers Care Truck Greaser Name Role Phone Verito Aguilar MD Primary Care Provider [phone] Note from [facility],non-owned Affiliates and Associated Physician Practices is amultiple site organization consisting of ambulatory clinics and hospital sitesin [place], [place], [place] and [place]. This disclosure is being madepursuant to the Care Everywhere program and may not contain all information available regarding this patient. Last updated 18.[facility] Allergies No known active allergies Medications * Be aware that medications may not be up to date on this document. Alwaysverify current medications with the patient. * albuterol HFA (PROVENTIL;VENTOLIN;PROAIR) 108 (90 Base) MCG/ACT inhaler (Started 01/23/2020) Inhale 2 puffs by mouth every 4 hours as needed * albuterol (PROVENTIL;VENTOLIN) (2.5 MG/3ML) 0.083% nebulizer solution(Started 01/23/2020) Inhale 2.5 mg by mouth every 4 hours as needed for Shortness of Breath * SUMAtriptan Succinate (IMITREX PO) * Ibuprofen (MOTRIN PO) Social History Tobacco Use Types Packs/Day Years [...] Mass Index 25.39 07/03/2020 9:37 AM CDT Procedures * STREP A SCREEN - POINT OF CARE (AMB) STL(Performed 04/02/2019) Performed for Acute URI * STREP A SCREEN - POINT OF CARE (AMB) STL(Performed 06/18/2018) Performed for Acute streptococcal pharyngitis Results * STREP A SCREEN (04/02/2019) Only the most recent of2 resultswithin the time period is included. Strep A Rapid POCT Negative Negative Strep A Internal Control Present Lot # [id number] Expiration Date 10/07/20 Throat ENTIRE THROAT (SURFACE REGION OF NECK) / Unknown 04/02/2019 Lauryn Bingham CELL TENDER HELPER-PHARMACY SERVICE ASSOCIATE LAB - POINT OF CA RE ORDERABLES Care Teams Truck Greaser Relationship Specialty Start Date End Date Verito Aguilar MD PCP - General Internal Medicine 07/03/20
--- OUTSIDE RECORDS SUMMARY | 2024-10-24 01:52 | XMS_ITS | Encounter Summary ---
Author Organization [facility] Address [facility] [place] [address] Care Team Providers Care Occupational Therapy Director Name Role Phone Abiel Sharp MD Primary Care Provider [phone] Reason for Visit * Reason Comments Sore Throat Encounter Details Date Type Department Care Team (Late st Contact Info) Description 04/02/2019 2:20 PM CDT Office Visit [facility] [address] [address] Provider, Alexia Exp Nameuti Acute URI (Primary Dx) Social History Tobacco Use Types Packs/Day Years Used Date Smoking Tobacco: Never Smokeless Tobacco: Never Sex and Gender Information Value Date Recorded Sex Assigned at Not on file Gender Identity Not on file Sexual Orientation Not on file documented as of this encounter Last Filed Vital Signs Vital Sign Reading Time Taken Comments Blood Pressure 100/64 04/02/2019 2:28 PM CDT Pulse 89 04/02/2019 2:28 PM CDT Temperature 37.1 ??C (98.7 ??F) 04/02/2019 2:28 PM CD T Respiratory Rate 17 04/02/2019 2:28 PM CDT Oxygen Saturation 98% 04/02/2019 2:28 PM CDT Inhaled Oxygen Concentration - - Weight 54.4 kg (120 lb) 04/02/2019 2:28 PM CDT Height 152.4 cm (5') 04/02/2019 2:28 PM CDT Body Mass Index 23.44 04/02/2019 2:28 PM CDT documented in this encounter Patient Instructions * Patient Instructions* Lauryn Bingham, ERP ANALYST-BATTERY STARTER - 04/02/2019 2:39 PM CDT Images from the original note were not included. You have been diagnosed with a VIRAL INFECTION. -Viral infections do not improve with antibiotics. -Viral symptoms can linger from 7-14 days -The color of drainage or phlegm does not always reflect the need for an antibiotic, even during a viral illness it is normal for drainage to change from yellow to green at times. -Please refer to the CDC Get Smart (cdc.gov/getsmart) campaign for more details. There are many OTC medications and supportive care measures you can try to treat your symptoms until your symptoms resolve. Use all OTC medications as directed per package instructions -Tylenol or Ibuprofen for fever and pain. -Antihistamines (Claritin, Zyrtec, or Lesli) as needed for drainage. -Mucinex as directed to promote cough; Delsym as directed to stop cough, as needed at night for sleep -Cough drops and throat lozenges -Increase decaffeinated fluids -Sleep with head of bed raised (to promote drainage) -Avoid spreading the virus by remaining at home and away from others until you are fever-free (temperature below 100) for 24 hours, without the aid of fever reducers. Good handwashing and covering your mouth when coughing are also important. If you are not improving or worsening in the next 5-7 days you must RETURN to the clinic, go to your PCP, or Urgent Care/ER to be SEEN and reevaluated. No further prescriptions or refills will be given by phone without another evaluation. SERIOUS COMPLICATIONS AFTER AN UPPER RESPIRATORY ILLNESS CAN OCCUR. CALL 911 OR GO TO ER WITH ANY DIFFICULTY BREATHING, SHORTNESS OF BREATH, INCREASED WORK OF BREATHING, DIFFICULTY TAKING A DEEP BREATH, ANY CHANGES IN THE COLOR OF YOUR SKIN (BLUISH OR PALE COLOR), WORSENING OF COUGH, OR CONSISTENT FEVERS, INABILITY TO KEEP FLUIDS DOWN, DECREASED ABILITIY TO URINATE, INCREASED HEADACHE, OR NEW NECK STIFFNESS. VIRAL ILLNESSES LEAVE YOU MORE VULNERABLE TO DEVELOP A BACTERIAL INFECTION AND ANY OF THESE SIGNS AND SYMPTOMS SHOULD BE TAKEN SERIOUSLY. Upper Respiratory Infection [place]OP[place]: An upper respiratory infection is also called a common cold. It can affect your nose, throat, ears,and sinuses. Common signs and symptoms include the following: Cold symptoms are usually worst for the first 3 to5 days. You may have any of the following: ?? Runny or stuffy nose ?? Sneezing and coughing ?? Sore throat or hoarseness ?? Red, watery, and sore eyes ?? Fatigue ?? Chills and fever ?? Headache, body aches, or sore muscles Seek care immediately if: ?? You have chest pain or trouble breathing. Contact your healthcare provider if: ?? You have a fever over 102??F (39??C). ?? Your sore throat gets worse or you see white or yellow spots in your throat. ?? Your symptoms get worse after 3 to 5 days or your cold is not better in 14 days. ?? You have a rash anywhere on your skin. ?? You have large, tender lumps in your neck. ?? You have thick, green or yellow drainage from your nose. ?? You cough up thick yellow, green, or bloody mucus. ?? You have vomiting for more than 24 hours and cannot keep fluids down. ?? You have a bad earache. ?? You have questions or concerns about your condition or care. Treatment for a cold: There is no cure for the common cold. Colds are caused by viruses and do not get better with antibiotics. Most people get better in 7 to 14 days. You may continue to cough for 2to 3 weeks. The following may help decrease your symptoms: ?? Decongestants help reduce nasal congestion and help you breathe more easily. If you take decongestant pills, they may make you feel restless or not able to sleep. Do not use decongestant sprays for more than a few days. ?? Cough suppressants help reduce coughing. Ask your healthcare provider which type of cough medicine is best for you. ?? NSAIDs , such as ibuprofen, help decrease swelling, pain, and fever. NSAIDs can cause stomach bleeding or kidney problems in certain people. If you take blood thinner medicine, always ask your healthcare provider if NSAIDs are safe for you. Always read the medicine label and follow directions. ?? Acetaminophen decreases pain and fever. It [...] milligrams) total of acetaminophen in one day. Manage your cold: ?? Rest as much as possible. Slowly start to do more each day. ?? Drink more liquids as directed. Liquids will help thin and loosen mucus so you can cough it up. Liquids will also help prevent dehydration. Liquids that help prevent dehydration include water, fruit juice, and broth. Do not drink liquids that contain caffeine. Caffeine can increase your risk fordehydration. Ask your healthcare provider how much liquid to drink each day. ?? Soothe a sore throat. Gargle with warm salt water. This helps your sore throat feel better. Makesalt water by dissolving ?? teaspoon salt in 1 cup warm water. You may also suck on hard candy or throat lozenges. You may use a sore throat spray. ?? Use a humidifier or vaporizer. Use a cool mist humidifier or a vaporizer to increase air moisture in your home. This may make it easier for you to breathe and help decrease your cough. ?? Use saline nasal drops as directed. These help relieve congestion. ?? Apply petroleum-based jelly around the outside of your nostrils. This can decrease irritation from blowing your nose. ?? Do not smoke. Nicotine and other chemicals in cigarettes and cigars can make your symptoms worse. They can also cause infections such as bronchitis or pneumonia. Ask your healthcare provider for information if you currently smoke and need help to quit. E-cigarettes or smokeless tobacco still contain nicotine. Talk to your healthcare provider before you use these products. Prevent spreading your cold to others: ?? Try to stay away from other people during the first 2 to 3 days of your cold when it is more easily spread. ?? Do not share food or drinks. ?? Do not share hand towels with household members. ?? Wash your hands often, especially after you blow your nose. Turn away from other people and cover your mouth and nose with a tissue when you sneeze or cough. Follow up with your healthcare provider as directed: Write down your questions so you remember to ask them during your visits. ?? Copyright [employer] 2019 Information is for End User's use only and may not be sold, redistributed or otherwise used for commercial purposes. All illustrations and images included in CareNotes?? are the copyrighted property of [employer]. or [employer] The above information is an educational therapist only. It is not intended as medical advice for individual conditions or treatments. Talk to your doctor, nurse or pharmacist before following any medical regimen to see if it is safe and effective for you. documented in this encounter Progress Notes * Lauryn Bingham APRN-CNP - 04/02/2019 2:34 PM CDT History James Gardner is a 18 year old female who presents to the clinic with Chief Complaint Patient presents with ??? Sore Throat . Primary Care Physician is Abiel Sharp MD. She reports the following symptoms: sinus and nasal congestion, sore throat, post nasal drip, headache, dry cough and pain while swallowing. Onset was 2 weeks ago. The Clinical course has been gradually worsening. Patient is drinking plenty of fluids. OTC- zyrtec with little relief. Past Medical History: Diagnosis Date ??? Asthma ??? MRSA (methicillin resistant staph aureus) culture positive ??? Murmur, cardiac ??? Seasonal allergies No family history on file. Current Outpatient Prescriptions Medication Sig Dispense Refill ??? ALBUTEROL IN ??? Cetirizine HCl (ZYRTEC ALLERGY PO) ??? fluticasone propionate (FLONASE) 50 MCG/ACT nasal spray Dilliner 2 sprays into each nostril once daily 1 bottles 0 No current facility-administered medications for this visit. No Known Allergies Social History Social History ??? Marital status: Single Social History Main Topics ??? Smoking status: Never Smoker ??? Smokeless tobacco: Never Used Review of Systems Constitutional: Negative for fevers, chills. Eyes: Negative Ears, nose, mouth, and throat: Positive for persistent sore throat, congestion Respiratory: Positive for acute cough, asthma, Negative for shortness of breath, wheezing Cardiovascular: Negative Neurological: Positive for headaches Objective: BP 100/64 (BP SITE: RIGHT ARM, BP POSITION: SITTING) Pulse 89 Temp 98.7 ??F (37.1 ??C) (Oral) Resp 17 Ht 1.524 m (5') Wt 54.4 kg (120 lb) SpO2 98% BMI 23.44 kg/m2 General appearance: alert, cooperative, no distress, oriented to person, place, and time Head: normocephalic, without trauma Eyes: sclera and conjunctiva clear Ears: canals clear, tympanic membranes normal, hearing intact to voice Nose: mucosa erythematous and swollen, clear rhinorrhea, all sinuses non-tender with palpation Throat: mild oropharyngeal erythema, tonsils unremarkable Neck: supple Nodes: no cervical adenopathy Lungs: breath sounds normal and symmetric; no rales or wheezes Heart: regular rhythm, normal S1 and S2, without murmurs, gallops or rubs Neurologic: mental status normal Assessment: Encounter Diagnosis Name Primary? Acute URI Yes Plan: Throat culture unable to be obtained due to no culture available- will call Wednesday when supplies is in. -Drink plenty of fluids -May take Tylenol or Ibuprofen as directed per package instructions -Warm Tea with honey can help with throat pain -Frequent warm or cool liquids can be soothing. Try soups or popsicles for comfort. -Benadryl at night for congestion, use as directed per package instructions -Zyrtec during the day for congestion, use as directed per package instructions Humidifier -Reviewed education materials and instructions with patient and answered all questions. Follow up with Abiel Sharp MD if symptoms worsen or do not completely resolve. If you are not improving or worsening in the next 3-5 days you must RETURN to the clinic, go to your PCP, or Urgent Care/ER to be SEEN and reevaluated. No further prescriptions or refills will be given by phone without another evaluation. Seek emergency care if severe symptoms, such as high fever, difficulty swallowing, drooling, neck pain, mental status changes, or severe headache occur. Orders Placed This Encounter ??? STREP A SCREEN ??? fluticasone propionate (FLONASE) 50 MCG/ACT nasal spray Sig: Dilliner 2 sprays into each nostril once daily Dispense: 1 bottles Refill: 0 Recent Results (from the past 24 hour(s)) STREP A SCREEN Collection Time: 04/02/19 12:00 AM Result Value Ref Range Strep A Rapid POCT Negative Negative Strep A Internal Control Present Lot # [id number] Expiration Date 10/07/20 Lauryn Bingham APRN, FNP-LAURI 04/02/2019 2:54 PM documented in this encounter Plan of Treatment Not on file documented as of this encounter Procedures Procedure Name Priority Date/Time Associated Diagnosis Comments STREP A SCREEN - POINT OF CARE (AMB) STL Routine 04/02/2019 Acute URI documented in this encounter Results * STREP A SCREEN (04/02/2019) Strep A Rapid POCT Negative Negative Strep A Internal Control Present Lot # [id number] Expiration Date 10/07/20 Throat ENTIRE THROAT (SURFACE REGION OF NECK) / Unknown 04/02/2019 Lauryn NO LAB - POINT OF CA RE ORDERABLES documented in this encounter Visit Diagnoses Diagnosis Acute URI- Primary Acute upper respiratory infections of unspecified site documented in this encounter Care Teams Occupational Therapy Director Relationship Specialty Start Date End Date Abiel Sharp MD [address] [facility] [address] [place] [address] PCP - General Pediatrics 06/18/18 07/02/20 documented as of this encounter
--- OUTSIDE RECORDS SUMMARY | 2024-10-24 01:52 | XMS_ITS | Encounter Summary ---
Author Organization [facility] Address [address] [facility] [place] [address] Care Team Providers Care Receiving Distribution Station Operator Name Role Phone Abiel Sharp MD Primary Care Provider [phone] Reason for Visit * Reason Onset Date Comments Follow-up 04/04/2019 Encounter Details Date Type Department Care Team (Late st Contact Info) Description 04/04/2019 Telephone [facility] [place] [id number] [place] [address] Jill Wright Follow-up Social History Tobacco Use Types Packs/Day Years Used Date Smoking Tobacco: Never Smokeless Tobacco: Never Sex and Gender Information Value Date Recorded Sex Assigned at Not on file Gender Identity Not on file Sexual Orientation Not on file documented as of this encounter Miscellaneous Notes * Telephone Encounter - Jill Wright - 04/04/2019 8:31 AM CDT Courtesy follow-up phone call made to patient. Message left advising patient to call service [facility] [phone] if they have any questions or concerns. Jill Wright 04/04/2019 8:31 AM documented in this encounter Plan of Treatment Not on file documented as of this encounter Visit Diagnoses Not on filedocumented in this encounter Care Teams Receiving Distribution Station Operator Relationship Specialty Start Date End Date Abiel Sharp MD [address] [facility] [address] [place] [address] PCP - General Pediatrics 06/18/18 07/02/20 documented as of this encounter
--- OUTSIDE RECORDS SUMMARY | 2024-10-24 01:52 | XMS_ITS | Encounter Summary ---
Author Organization [facility] Address [address] [facility] [place] [address] Care Team Providers Care Drawer Upfitter Name Role Phone Abiel Sharp MD Primary Care Provider [phone] Reason for Visit * Reason Onset Date Comments Follow-up 06/20/2018 Encounter Details Date Type Department Care Team (Late st Contact Info) Description 06/20/[address] [facility] [address] [address] Nancy David APRN-CNP [address] [place] [address] Follow-up Social History Tobacco Use Types Packs/Day Years Used Date Smoking Tobacco: Never Smokeless Tobacco: Never Sex and Gender Information Value Date Recorded Sex Assigned at Not on file Gender Identity Not on file Sexual Orientation Not on file documented as of this encounter Miscellaneous Notes * Telephone Encounter - Nancy David APRN-CNP - 06/20/2018 12:14 PM CDT Spoke with patient and they have no questions or concerns following their most recent visit to [facility]. documented in this encounter Plan of Treatment Not on file documented as of this encounter Visit Diagnoses Not on filedocumented in this encounter Care Teams Drawer Upfitter Relationship Specialty Start Date End Date Abiel Sharp MD [address] [place] [address] PCP - General Pediatrics 06/18/18 07/02/20 documented as of this encounter
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
--- OUTSIDE RECORDS SUMMARY | 2024-10-24 01:52 | XMS_ITS | Encounter Summary ---
Author Organization [facility] Address [facility] [place] [address] Care Team Providers Care Supervisor Silvering Department Name Role Phone Abiel Sharp MD Primary Care Provider [phone] Reason for Visit * Reason Comments Sore Throat Encounter Details Date Type Department Care Team (Latest Contact Info) Description 06/18/2018 11:40 AM CDT Office Visit [facility] AT [address] [address] Provider, Alexia Exp Namevai Acute streptococcal pharyngitis (Primary Dx) Social History Tobacco Use Types Packs/Day Years Used Date Smoking Tobacco: Never Smokeless Tobacco: Never Sex and Gender Information Value Date Recorded Sex Assigned at Not on file Gender Identity Not on file Sexual Orientation Not on file documented as of this encounter Last Filed Vital Signs Vital Sign Reading Time Taken Comments Blood Pressure 98/60 06/18/2018 12:08 PM CDT Pulse 75 06/18/2018 12:08 PM CDT Temperature 37.2 ??C (98.9 ??F) 06/18/2018 12:08 PM C DT Respiratory Rate 16 06/18/2018 12:08 PM CDT Oxygen Saturation 99% 06/18/2018 12:08 PM CDT Inhaled Oxygen Concentration - - Weight 54.4 kg (120 lb) 06/18/2018 12:08 PM CDT Height 153.7 cm (5' 0.5 ) 06/18/2018 12:08 PM CD T Body Mass Index 23.05 06/18/2018 12:08 PM CDT Body Mass Index Percentile 66.36% 06/18/2018 12: 08 PM CDT Growth Chart: [facility] (Girls, 2- 20 Years) documented in this encounter Patient Instructions * Patient Instructions* Neida Rodríguez, SALES MERCHANDISER-MASTER CONTROL TECHNICIAN - 06/18/2018 12:20 PM CDT Images from the original note were not included. Drink plenty of fluids and rest when able. May take Tylenol or Ibuprofen as directed per package instructions Warm salt water gargles Humidifier Change toothbrush on day 3 of antibiotic (or after 6 doses) SEEK EMERGENCY CARE IF SEVERE SYMPTOMS PERSIST, SUCH , BUT NOT LIMITED TO: HIGH FEVER, NECK PAIN,SWELLING OF THE NECK, NECK TENDERNESS, DEVELOPMENT OF RASH, DIFFICULTY SWALLOWING, MENTAL STATUS CHANGES, SEVERE HEADACHE, CHANGES IN THE COLOR OF YOUR URINE, DECREASED URINATION, OR INABILITY TO SWALLOW SALIVA (MAY MANIFEST DROOLING IN CHILDREN) Strep Throat in Children SHEETMETAL PATTERNMAKER: Strep throat is a throat infection caused by bacteria. It is easily spread from person to person. Common symptoms include the following: ?? Sore, red, and swollen throat ?? Fever and headache ?? Upset stomach, abdominal pain, or vomiting ?? White or yellow patches or blisters in the back of the throat ?? Throat pain when he or she swallows ?? Tender, swollen lumps on the sides of the neck or jaw Call 911 for any of the following: ?? Your child has trouble breathing. Seek immediate care if: ?? Your child's signs and symptoms continue for more than 5 to 7 days. ?? Your child is tugging at his or her ears or has ear pain. ?? Your child is drooling because he or she cannot swallow their spit. ?? Your child has blue lips or fingernails. Contact your child's healthcare provider if: ?? Your child has a fever. ?? Your child has a rash that is itchy or swollen. ?? Your child's signs and symptoms get worse or do not get better, even after medicine. ?? You have questions or concerns about your child's condition or care. Treatment for strep throat: ?? Antibiotics treat a bacterial infection. Your child should feel better within 2 to 3 days after antibiotics are started. Give your child his antibiotics until they are gone, unless your child's healthcare provider says to stop them. Your child may return to school 24 hours after he starts antibiotic medicine. ?? Acetaminophen decreases pain and fever. It is available without a doctor's order. Ask how much to give your child and how often to give it. Follow directions. Acetaminophen can cause liver damage if not taken correctly. ?? NSAIDs , such as ibuprofen, help decrease swelling, pain, and fever. This medicine is available with or without a doctor's order. NSAIDs can cause stomach bleeding or kidney problems in certain people. If your child takes blood thinner medicine, always ask if NSAIDs are safe for him. Always readthe medicine label and follow directions. Do not give these medicines to children under 6 months of age without direction from your child's healthcare provider. ?? Do not give aspirin to children under 18 years of age. Your child could develop Sal syndrome ifhe takes aspirin. Sal syndrome can cause life- threatening brain and liver damage. Check your child's medicine labels for aspirin, salicylates, or oil of wintergreen. ?? Give your child's medicine as directed. Contact your child's healthcare provider if you think the medicine is not working as expected. Tell him or her if your child is allergic to any medicine. Keep a current list of the medicines, vitamins, and herbs your child takes. Include the amounts, and when, how, and why they are taken. Bring the list or the medicines in their containers to follow-up visits. Carry your child's medicine list with you in case of an emergency. Manage your child's symptoms: ?? Give your child throat lozenges or hard candy to suck on. Lozenges and hard candy can help decrease throat pain. Do not give lozenges or hard candy to children under 4 years. ?? Give your child plenty of liquids. Liquids will help soothe your child's throat. Ask your child's healthcare provider how much liquid to give your child each day. Give your child warm or frozen liquids. Warm liquids include hot chocolate, sweetened tea, or soups. Frozen liquids include ice pops.Do not give your child acidic drinks such as orange juice, grapefruit juice, or lemonade. Acidic drinks can make your child's throat pain worse. ?? Have your child gargle with salt water. If your child can gargle, give him or her ?? of a teaspoon of salt mixed with 1 cup of warm water. Tell your child to gargle for 10 to 15 seconds. Your child can repeat this up to 4 times each day. ?? Use a cool mist humidifier in your child's bedroom. A cool mist humidifier increases moisture inthe air. This may decrease dryness and pain in your child's throat. Prevent the spread of strep throat: ?? Wash your and your child's hands often. Use soap and water or an alcohol- based hand rub. ?? Do not let your child share food or drinks. Replace your child's toothbrush after he has taken antibiotics for 24 hours. Follow up with your child's healthcare provider as directed: Write down your questions so you remember to ask them during your child's visits. ?? 2017 [employer] Information is for End User's use only and may not be sold, redistributed or otherwise used for commercial purposes. All illustrations and images included in CareNotes?? are the copyrighted property of [employer] or [employer]. The above information is an paid search manager only. It is not intended as medical advice for individual conditions or treatments. Talk to your doctor, nurse or pharmacist before following any medical regimen to see if it is safe and effective for you. documented in this encounter Progress Notes * Neida Rodríguez APRN-CNP - 06/18/2018 12:09 PM CDT Images from the original note were not included. History James Gardner is a 17 y.o. female who presents to the clinic with Chief Complaint Patient presents with ??? Sore Throat . Primary Care Physician is Abiel Sharp MD. She reports the following symptoms: sore throat, pain while swallowing and white spots in throat, headache and stomach ache. Onset was 3 days ago. The Clinical course has been unchanged. Patient is drinking moderate amounts of fluids.. The pain is described as aching, and is 4/10 in intensity. OTC-none. Sick Contacts: none Past Medical History: Diagnosis Date ??? Asthma ??? Murmur, cardiac ??? Seasonal allergies No family history on file. Current Outpatient Prescriptions Medication Sig Dispense Refill ??? Cetirizine HCl (ZYRTEC ALLERGY PO) ??? amoxicillin (AMOXIL) 500 MG tablet Take 1 tablet by mouth 2 times daily for 10 days 20 tablet 0 No current facility-administered medications for this visit. No Known Allergies Social History Social History ??? Marital status: Single Spouse name: N/A ??? Number of children: N/A ??? Years of education: N/A Occupational History ??? Not on file. Social History Main Topics ??? Smoking status: Never Smoker ??? Smokeless tobacco: Never Used ??? Alcohol use Not on file ??? Drug use: Not on file ??? Sexual activity: Not on file Other Topics Concern ??? Not on file Social History Narrative ??? No narrative on file Review of Systems Pertinent items are noted in HPI Constitutional: Negative Eyes: Negative Ears, nose, mouth, and throat: Positive for persistent sore throat and white patches on tonsils Respiratory: Negative Cardiovascular: Negative Gastrointestinal: Positive for poor appetite Hematologic/lymphatic: Negative Neurological: Positive for headaches Objective: BP 98/60 Pulse 75 Temp 98.9 ??F (37.2 ??C) Resp 16 Ht 1.537 m (5' 0.5 ) Wt 54.4 kg (120 lb) SpO2 99% BMI 23.05 kg/m2 General appearance: alert, cooperative, no distress, oriented to person, place, and time Head: normocephalic, without trauma Eyes: sclera and conjunctiva clear Nose: nares open; no septal deviation is noted, no maxillary tenderness Throat: lips, mucosa, and tongue normal; teeth and gums normal, moderate oropharyngeal erythema, tonsillar hypertrophy 2+, exudates present Neck: supple Nodes: non tender cervical adenopathy bilaterally Lungs: breath sounds normal and symmetric; no rales or wheezes Heart: regular rhythm, normal S1 and S2, without murmurs, gallops or rubs Neurologic: mental status normal Assessment: Encounter Diagnosis Name Primary? Acute streptococcal pharyngitis Yes Plan: Patient placed on antibiotics - see orders. Patient advised of the risk of peritonsillar abscess formation. Patient advised will be infectious for 24 hours after starting antibiotics. Educational materials given. Drink plenty of fluids May take Tylenol or Ibuprofen as directed per package instructions Warm salt water gargles Humidifier Change toothbrush on day 3 of antibiotic (or after 6 doses) Reviewed education materials and instructions with patient and answered all questions. James Jj verbalized understanding and agrees with plan. Follow up with Abiel Sharp MD if symptoms worsen or do not completely resolve. SEEK EMERGENCY CARE IF SEVERE SYMPTOMS PERSIST, SUCH , BUT NOT LIMITED TO: HIGH FEVER, NECK PAIN,SWELLING OF THE NECK, NECK TENDERNESS, DEVELOPMENT OF RASH, DIFFICULTY SWALLOWING, MENTAL STATUS CHANGES, SEVERE HEADACHE, CHANGES IN THE COLOR OF YOUR URINE, DECREASED URINATION, OR INABILITY TO SWALLOW SALIVA (MAY MANIFEST DROOLING IN CHILDREN) Orders Placed This Encounter ??? STREP A SCREEN - POINT OF CARE (AMB) STL ??? amoxicillin (AMOXIL) 500 MG tablet Sig: Take 1 tablet by mouth 2 times daily for 10 days Dispense: 20 tablet Refill: 0 Recent Results (from the past 24 hour(s)) STREP A SCREEN - POINT OF CARE (AMB) STL Collection Time: 06/18/18 12:00 AM Result Value Ref Range Strep A Rapid Positive (Abnormal) Negative Strep A INTERNAL CONTROL Present Lot Number [id number] Expiration Date 12/16/2019 Neida Rodríguez APRN, FNP-LAURI 06/18/2018 12:23 PM documented in this encounter Plan of Treatment Not on file documented as of this encounter Procedures Procedure Name Priority Date/Time Associated Diagnosis Comments STREP A SCREEN - POINT OF CARE (AMB) STL Routine 06/18/2018 Acute streptococcal pharyngitis documented in this encounter Results * (ABNORMAL) STREP A SCREEN - POINT OF CARE (AMB) STL (06/18/2018) Strep A Rapid POCT Positive(A) Negative Strep A Internal Control Present Lot # [id number] Expiration Date 12/16/2019 Throat ENTIRE THROAT (SURFACE REGION OF NECK) / Unknown 06/18/2018 Neida NO LAB - POINT OF CARE ORDERABLES documented in this encounter Visit Diagnoses Diagnosis Acute streptococcal pharyngitis- Primary Streptococcal sore throat documented in this encounter Care Teams Supervisor Silvering Department Relationship Specialty Start Date End Date Abiel Sharp MD [address] [id number] PCP - General Pediatrics 06/18/18 07/02/20 documented as of this encounter
--- OUTSIDE RECORDS SUMMARY | 2024-10-24 01:52 | XMS_ITS | Referral Summary ---
Author Organization [facility] Address [address] [facility] [place] [address] Care Team Providers Care Review Specialist Name Role Phone Verito Aguilar MD Primary Care Provider [phone] Source Comments [facility],non-owned Affiliates and Associated Physician Practices is amultiple site organization consisting of ambulatory clinics and hospital sitesin [place], [place], [place] and [place]. This disclosure is being madepursuant to the Care Everywhere program and may not contain all information available regarding this patient. Last updated 18.[facility] [employer] Allergies No known active allergies Medications * [...] 07/03/2020 9:37 AM CDT Plan of Treatment Not on file Care Teams Review Specialist Relationship Specialty Start Date End Date Verito Aguilar MD PCP - General Internal Medicine 07/03/20
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
--- OUTSIDE RECORDS SUMMARY | 2024-10-24 01:52 | XMS_ITS | Encounter Summary ---
Author Organization [facility] Care Team Providers Care Risk Control Director Name Role Phone Provider, None Primary Care Provider Unavailabl e Encounter Details Date Type Department Care Team (Latest Contact Info) Description 02/02/2024 Travel Social History Tobacco Use Types Packs/Day Years Used Date Smoking Tobacco: Never Smokeless Tobacco: Never Alcohol Use Standard Drinks/Week Comments Never 0 [...] on filedocumented in this encounter Care Teams Risk Control Director Relationship Specialty Start Date End Date Provider, None [place] PCP - General 02/02/24 documented as of this encounter
--- OUTSIDE RECORDS SUMMARY | 2024-10-24 01:52 | XMS_ITS | CONTINUITY OF CARE DOCUMENT ---
Author Name kenan grayson Address Unknown Organization [facility] Address [address] [place] [address] Phone [phone] Care Team Providers Care Autoglazier Name Role Phone Giovany OCHOA, Ama Unavailable MARSHA OCHOA, JAMEL Chilel Unavailable EMILY HURLEY MD Unavailable INSURANCE PROVIDERS Payer name Policy type / Coverage type [place] red republican ID HE[employer]CARE AND FAMILY SERVICES Medicaid 1 [id number] AETNA HE[employer] Other [id number]
== END 2024-10-20 15:32 | disposition home or self-care (01) ==
PROVIDERS: Visit Provider Obstetrics & Gynecology
DX: Q51.810 Arcuate uterus (principal)
CPT/HCPCS: 72197; A9577

== ENCOUNTER 2025-02-23 10:43 | Outpatient (CLI) | payer OTHER, SELFPAY ==
--- OUTSIDE RECORDS SUMMARY | 2025-02-23 10:46 | XMS_ITS | Clinical Summary ---
Author Organization [facility] Address [address] [place] [address] Care Team Providers Care Alteration Tailor Name Role Phone Lonny Argueta MD Primary Care Provider +1- [phone] Allergies No known active allergies Medications methylPREDNISol one (Medrol, Lion,) 4 mg DosepackIndicat ions:Rash follow package directions 21 tablet 2 Active Additional Information Patient not taking.Reported on 10/14/2022 benzonatate (TESSALON) 200 mg capsuleIndicati ons:Acute cough Take 1 capsule (200 mg total) by mouth 3 (three) times a day as needed for cough 30 capsule 2 Active Additional Information Patient not taking.Reported on 12/21/2022 albuterol HFA (ProAir HFA) 90 mcg/actuation inhalerIndicati ons:Encounter for medication refill Inhale 2 puffs every 4 (four) hours as needed for wheezing or shortness of breath 8.5 g 3 Active Active Problems Problem Noted Date Diagnosed Date Post-concussion headache 08/25/2018 Epilepsy undetermined as to focal or generalized 08/25/2018 Constipation 09/08/2017 Generalized anxiety disorder 09/08/2017 Mild intermittent asthma 09/08/2017 Moderate recurrent major depression 09/08/2017 Medical History Medical History Date Comments Migraine Anxiety Depression Headache, tension-type Seizures (HCC) Family History Medical History Relation Name Comments Migraines Father Migraines Mother Alcohol abuse Other Arthritis Other Clotting disorder Other Diabetes Other Hypertension Other Kidney disease Other Mental illness Other Relation Name Status Comments Father Alive Mother Alive Other Social History Tobacco Use Types Packs/Day Years Used Date Smoking Tobacco: Never Smokeless Tobacco: Never Alcohol Use Standard Drinks/Week Comments No 0 (1 standard drink = 0.6 oz pur e alcohol) Personal Safety Answer Date Recorded Getting School Help Needed Not on file 01/07 Comments No Sex and Gender Information Value Date Recorded Sex Assigned at Not on file Legal Sex Female 6:07 PM CDT Gender Identity Female 08/25/2021 10:36 AM CDT Sexual Orientation Straight 08/25/2021 10 :36 AM CDT Obstetrics History Last Filed Vital Signs Vital Sign Reading Time Taken Comments Blood Pressure 90/60 12/21/2022 7:00 PM SECONDS GRADER Pulse 83 12/21/2022 7:00 PM SECONDS GRADER Temperature 36.9 C (98.5 F) 12/21/2022 7:00 PM SECONDS GRADER Respiratory Rate 18 12/21/2022 7:00 PM SECONDS GRADER Oxygen Saturation 99% 12/21/2022 7:00 PM SECONDS GRADER Inhaled Oxygen Concentration - - Weight 63.5 kg (140 lb) 12/21/2022 7:00 PM SECONDS GRADER Height 152.4 cm (5') 12/21/2022 7:00 PM SECONDS GRADER Body Mass Index 27.34 12/21/2022 7:00 PM SECONDS GRADER Plan of Treatment Health Maintenance Due Date Last Done Comments Cervical Cancer Screening 1999 Depression Screening 1999 Hepatitis C Screening 1999 Pneumococcal vaccine <65 (1 of 1 - PPSV23) 2005 09/27/2000, 06/04/2000, 05/04/2000 Regular Well Visit/Exam 18-64 2017 DTaP/Tdap/Td Vaccine (7 - Td or Tdap) 06/16/2020 06/16/2010, 04/21/2004, 03/21/2001, Additional history exists Influenza Vaccine (#1) 2024 8, 09/08/2017, 10/06/2016, Additional history exists Varicella Vaccines Completed 08/08/2007, 06/28/2000 Hepatitis B Screening Completed 08/03/2009 , 05/04/2000, 04/03/2000, Additional history exists HPV Vaccines Completed 09/13/2015, 08/09, 07/03/2013 Insurance [id number] [place] [id number] [facility] CHOICE PLUS [id number] [place] [id number] Care Teams Alteration Tailor Relationship Specialty Start Date End Date Lonny Argueta MD PCP - General 04/04/20
--- OUTSIDE RECORDS SUMMARY | 2025-02-23 10:46 | XMS_ITS | CONTINUITY OF CARE DOCUMENT ---
Author Name kenan grayson Address Unknown Organization [facility] Address [address] [place] [address] Phone [phone] Care Team Providers Care Therapy Site Coordinator Name Role Phone Giovany OCHOA, Ama Unavailable MARSHA OCHOA, JAMEL Chilel Unavailable EMILY HURLEY MD Unavailable INSURANCE PROVIDERS Payer name Policy type / Coverage type [place] red constitution party ID HEALTHCARE AND FAMILY SERVICES Medicaid 1 [id number] A[employer]NA HE[employer] Other [id number]
--- OUTSIDE RECORDS SUMMARY | 2025-02-23 10:46 | XMS_ITS | Clinical Summary ---
Author Organization [facility] Address [address] [place] [address] Care Team Providers Care Train Station Server Name Role Phone Verito Aguilar MD Primary Care Provider +1- [phone] Source Comments [facility],non-owned Affiliates and Associated Physician Practices is amultiple site organization consisting of ambulatory clinics and hospital sitesin [place], [place], [place] and [place]. This disclosure is being madepursuant to the Care Everywhere program and may not contain all information available regarding this patient. Last updated 18.[facility] Allergies No known active allergies Medications * Be aware that medications may not be up to date on this document. Alwaysverify current medications with the patient. albuterol HFA (PROVENTIL;VENT NUNU;PROAIR) 108 (90 Base) MCG/ACT inhaler Inhale 2 puffs by mouth every 4 hours as needed 1 Inhaler 0 Active albuterol (PROVENTIL;VENT NUNU) (2.5 MG/3ML) 0.083% nebulizer solution Inhale 2.5 mg by mouth every 4 hours as needed for Shortness of Breath 25 vial 0 Active SUMAtriptan Succinate (IMITREX PO) Active Ibuprofen (MOTRIN PO) Active Social History Tobacco Use Types Packs/Day Years Used Date Smoking Tobacco: Never Smokeless Tobacco: Never Comments No Sex and Gender Information Value Date Recorded Sex Assigned at Not on file Legal Sex Female 5:39 AM SCHOOL DIRECTOR Gender Identity Not on file Sexual Orientation Not on file Last Filed Vital Signs Vital Sign Reading Time Taken Comments Blood Pressure 104/60 07/03/2020 9:37 AM CDT Pulse 95 07/03/2020 9:37 AM CDT Temperature 37.3 C (99.1 F) 07/03/2020 9:37 AM CDT Respiratory Rate 16 07/03/2020 9:37 AM CDT Oxygen Saturation 97% 07/03/2020 9:37 AM CDT Inhaled Oxygen Concentration - - Weight 59 kg (130 lb) 07/03/2020 9:37 AM CDT Height 152.4 cm (5') 07/03/2020 9:37 AM CDT Body Mass Index 25.39 07/03/2020 9:37 AM CDT Plan of Treatment Health Maintenance Due Date Last Done Comments HIV SCREENING 2014 HPV VACCINE (1 - 3-dose series) 2014 CHLAMYDIA/GONORRHEA SCREENING 2015 HEPATITIS C SCREENING 06/20/2017 DTAP/TDAP/TD VACCINES (1 - Tdap) 2018 HEPATITIS B VACCINE (1 of 3 - 19+ 3-dose series) 2018 COVID-19 VACCINE (1 - 2023-2 5 season) 2024 DEPRESSION SCREENING 11/08/2024 INFLUENZA VACCINE (Season Ended) 2025 09/08/20 17 ZOSTER VACCINE (1 of 2) 2049 HIB VACCINE Aged Out No longer eligi ble based on patient's age to complete this topic MENINGOCOCCAL (Group B) VACC INE SHARED DECISION-MAKING Aged Out No longer eligibl e based on patient's age to complete this topic MENINGOCOCCAL GROUPS A/C/Y/W VACCINE Aged Out No longer eligible b ased on patient's age to complete this topic PNEUMOCOCCAL VACCINE Aged Out No long er eligible based on patient's age to complete this topic Insurance AETNA Care Teams Train Station Server Relationship Specialty Start Date End Date Verito Aguilar MD PCP - General Internal Medicine 07/03/20
--- OUTSIDE RECORDS SUMMARY | 2025-02-23 10:46 | XMS_ITS | Referral Summary ---
Author Organization [facility] Address [address] [place] [address] Care Team Providers Care Bakery Clerk Name Role Phone Lonny Argueta MD Primary Care Provider +1- [phone] Allergies No known active allergies Medications methylPREDNISol [...] asthma 09/08/2017 Moderate recurrent major depression 09/08/2017 Social History Tobacco Use Types Packs/Day Years [...] Orientation Straight 08/25/2021 10 :36 AM CDT Last Filed Vital Signs Vital Sign Reading Time Taken Comments Blood Pressure 90/60 12/21/2022 7:00 PM TRUST ADMINISTRATOR Pulse 83 12/21/2022 7:00 PM TRUST ADMINISTRATOR Temperature 36.9 C (98.5 F) 12/21/2022 7:00 PM TRUST ADMINISTRATOR Respiratory Rate 18 12/21/2022 7:00 PM TRUST ADMINISTRATOR Oxygen Saturation 99% 12/21/2022 7:00 PM TRUST ADMINISTRATOR Inhaled Oxygen Concentration - - Weight 63.5 kg (140 lb) 12/21/2022 7:00 PM TRUST ADMINISTRATOR Height 152.4 cm (5') 12/21/2022 7:00 PM TRUST ADMINISTRATOR Body Mass Index 27.34 12/21/2022 7:00 PM TRUST ADMINISTRATOR Plan of Treatment Not on file Insurance [address] [facility]ICE [facility] H[facility]PPO Address: [facility] [address] [place] [address] Care Teams Bakery Clerk Relationship Specialty Start Date End Date Lonny Argueta MD PCP - General 04/04/20
--- OUTSIDE RECORDS SUMMARY | 2025-02-23 10:46 | XMS_ITS | Clinical Summary ---
Author Organization [facility] Address [address] [place] [address] Phone Care Team Providers Care Sonographer Name Role Phone Provider, None Primary Care [...] 83 02/02/2024 7:32 PM CDT Temperature 37.2 C (99 F) 02/02/2024 7:32 PM CDT Respiratory Rate 19 [...] 1999 Pap Smear 2020 Influenza Immunization (#1) 07/09/2024/0 07/2024, 08/26/2018, 09/08/2017, Additional history exists SARS-COV-2 [...] patient's age to complete this topic Insurance [facility] Care Teams Sonographer Relationship Specialty Start Date End Date Provider, None [place] PCP - General 02/02/24
[2025-02-23 11:17] LABS: Basophils Percent Auto 0.5 % (0.2-1.2); Eosinophils Absolute Auto 0.2 K/mm3 (0-0.3); Eosinophils Percent Auto 2.2 % (0-4.4); Hematocrit 44.5 % (37.0-47.0); Hemoglobin 14.5 g/dL (12.0-15.0); Hemoglobin 14.7 g/dL (12.0-15.0); Immature Granulocyte Absolute 0.02 K/mm3 (0.00-0.031); Immature Granulocyte Percent A 0.2 % (0-0.5); Lymphocytes Absolute Auto 1.53 K/mm3 (0.9-3.2); Lymphocytes Percent Auto 17.6 % (18.3-44.2); Mean Corpuscular HGB Conc 32.2 g/dl (32-36); Mean Corpuscular Hemoglobin 28.8 pg (26-34); Mean Corpuscular Hemoglobin 28.9 pg (26-34); Mean Corpuscular Volume 87.4 fl (80-100); Mean Corpuscular Volume 89.3 fl (80-100); Mean Platelet Volume 9.8 fl (7.4-10.4); Monocytes Absolute Auto 0.6 K/mm3 (0.1-0.6); Monocytes Percent Auto 7.3 % (2.6-8.5); Neutrophils Absolute Auto 6.3 K/mm3 (1.3-6.7); Neutrophils Percent Auto 72.2 % (45.5-73.1); Platelet Count Result 416 k/mm3 (150-375); Platelet Count Result 435 k/mm3 (150-375); Red Blood Count 5.04 M/mm3 (4.2-5.4); Red Blood Count 5.09 M/mm3 (4.2-5.4); Red Cell Distribution Width 13.4 % (11.5-14.5); Red Cell Distribution Width 13.5 % (11.5-14.5); White Blood Count 8.6 K/mm3 (4.5-10.0); White Blood Count 8.7 K/mm3 (4.5-10.0)
[2025-02-23 11:18] LABS: Add Urine Microscopic? NO; Appearance Urine Clear (Clear); Bilirubin Urine Negative (Negative); Blood Urine Negative (Negative); Color Urine Yellow (Yellow); Glucose Urine UA Negative (Negative); Ketones Urine Negative (Negative); Leukocyte Esterase Ur Negative LEU/UL (Negative); Nitrate Urine Negative (Negative); Protein Urine Negative (Negative); Specific Grav Ur 1.015 (1.001-1.035); Urobilinogen Urine 0.2 mg/dL (<2.0); pH Urine 6.5 (5.0-9.0)
[2025-02-23 11:38] LABS: Cholesterol 149 mg/dL (0-200); HDL Direct 47 mg/dL; Triglycerides 83 mg/dL (<150)
[2025-02-23 11:39] LABS: Alanine Aminotransferase 19 U/L (6-35); Alkaline Phosphatase 92 U/L (38-126); Anion Gap 14 mmol/L (4-12); Aspartate Amino Transferase 28 U/L (14-36); Blood Urea Nitrogen 12 mg/dL (7-17); Calcium 9.6 mg/dL (8.4-10.2); Carbon Dioxide 22 mmol/L (22-30); Chloride 103 mmol/L (98-107); Estimated Glomerular Filt Rate > 60; Glucose 89 mg/dL (65-110); Sodium 139 mmol/L (137-145)
[2025-02-23 11:47] LABS: Hemoglobin A1C 5.3 % (<5.7)
[2025-02-23 11:48] LABS: NT Pro B Type Natriuretic Pept 75 pg/mL (19.9-100)
[2025-02-23 11:49] LABS: LDL Cholesterol Direct 70 mg/dL
[2025-02-23 12:18] LABS: HIV 1/2 Ab P24 Ag Result Negative (Negative)
== END 2025-02-23 10:44 | disposition home or self-care (01) ==
LOC: ANHLAB 10:44
PROVIDERS: Obstetrics & Gynecology; PCP Nurse Practitioner Family; Visit Provider Physical Medicine & Rehabilitation
DX: Z00.00 Encounter for general adult medical examination without abnormal findings (principal); R33.9 Retention of urine, unspecified; N93.9 Abnormal uterine and vaginal bleeding, unspecified; R60.0 Localized edema; J45.909 Unspecified asthma, uncomplicated; R00.2 Palpitations; F41.8 Other specified anxiety disorders; F90.2 Attention-deficit hyperactivity disorder, combined type; E66.9 Obesity, unspecified; Z76.89 Persons encountering health services in other specified circumstances; Z13.1 Encounter for screening for diabetes mellitus; Z13.220 Encounter for screening for lipoid disorders; Z11.3 Encounter for screening for infections with a predominantly sexual mode of transmission
CPT/HCPCS: 36415; 80053; 80061; 81003; 83036; 83880; 84443; 85025; 85027; 86703; 87086; G0432

== ENCOUNTER 2025-04-03 09:21 | Outpatient (CLI) | payer OTHER, SELFPAY ==
--- OUTSIDE RECORDS SUMMARY | 2025-04-03 09:28 | XMS_ITS | Referral Summary ---
Author Organization [facility] Address [address] [place] [address] Care Team Providers Care Pen Tester Name Role Phone Lonny Argueta MD Primary Care Provider +1- [phone] Allergies No known active allergies Medications methylPREDNISol [...] Comments Blood Pressure 90/60 12/21/2022 7:00 PM WORKDAY SENIOR ASSOCIATE Pulse 83 12/21/2022 7:00 PM WORKDAY SENIOR ASSOCIATE Temperature 36.9 C (98.5 F) 12/21/2022 7:00 PM WORKDAY SENIOR ASSOCIATE Respiratory Rate 18 12/21/2022 7:00 PM WORKDAY SENIOR ASSOCIATE Oxygen Saturation 99% 12/21/2022 7:00 PM WORKDAY SENIOR ASSOCIATE Inhaled Oxygen Concentration - - Weight 63.5 kg (140 lb) 12/21/2022 7:00 PM WORKDAY SENIOR ASSOCIATE Height 152.4 cm (5') 12/21/2022 7:00 PM WORKDAY SENIOR ASSOCIATE Body Mass Index 27.34 12/21/2022 7:00 PM WORKDAY SENIOR ASSOCIATE Plan of Treatment Not on file Insurance [id number] [facility] [address] CHOICE PLUS Care Teams Pen Tester Relationship Specialty Start Date End Date Lonny Argueta MD PCP - General 04/04/20
--- OUTSIDE RECORDS SUMMARY | 2025-04-03 09:28 | XMS_ITS | Clinical Summary ---
Author Organization [facility] Address [address] [place] [address] Phone Care Team Providers Care Thermodynamics Engineer Name Role Phone Provider, None Primary Care [...] patient's age to complete this topic Insurance [facility] Care Teams Thermodynamics Engineer Relationship Specialty Start Date End Date Provider, None [place] PCP - General 02/02/24
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
--- OUTSIDE RECORDS SUMMARY | 2025-04-03 09:28 | XMS_ITS | Clinical Summary ---
Author Organization [facility] Address [address] [place] [address] Care Team Providers Care Mobile Developer Name Role Phone Verito Aguilar MD Primary Care Provider [phone] Source Comments [facility],non-owned Affiliates and Associated Physician Practices is amultiple site organization consisting of ambulatory clinics and hospital sitesin [place], [place], [place] and [place]. This disclosure is being madepursuant to the Care Everywhere program and may not contain all information available regarding this patient. 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
--- OUTSIDE RECORDS SUMMARY | 2025-04-03 09:28 | XMS_ITS | CONTINUITY OF CARE DOCUMENT ---
Author Name kenan grayson Address Unknown Organization [facility] Address [address] [place] [address] Phone [phone] Care Team Providers Care Executive Vice President Name Role Phone Giovany OCHOA, Ama Unavailable MARSHA OCHOA, JAMEL Chilel Unavailable EMILY HURLEY MD Unavailable INSURANCE PROVIDERS Payer name Policy type / Coverage type [place] red democrat ID HEALTHCARE AND FAMILY SERVICES Medicaid 1 [id number] AETNA HEALTHCARE Other [id number]
--- OUTSIDE RECORDS SUMMARY | 2025-04-03 09:28 | XMS_ITS | Clinical Summary ---
Author Organization [facility] Address [address] [place] [address] Care Team Providers Care Lathe Spotter Name Role Phone Lonny Argueta MD Primary Care Provider [phone]- [phone] Allergies No known active allergies Medications methylPREDNISol [...] Comments Blood Pressure 90/60 12/21/2022 7:00 PM ORGAN BUILDER Pulse 83 12/21/2022 7:00 PM ORGAN BUILDER Temperature 36.9 C (98.5 F) 12/21/2022 7:00 PM ORGAN BUILDER Respiratory Rate 18 12/21/2022 7:00 PM ORGAN BUILDER Oxygen Saturation 99% 12/21/2022 7:00 PM ORGAN BUILDER Inhaled Oxygen Concentration - - Weight 63.5 kg (140 lb) 12/21/2022 7:00 PM ORGAN BUILDER Height 152.4 cm (5') 12/21/2022 7:00 PM ORGAN BUILDER Body Mass Index 27.34 12/21/2022 7:00 PM ORGAN BUILDER Plan of Treatment Health Maintenance Due Date Last Done Comments Cervical Cancer Screening 1999 Depression Screening 1999 Hepatitis C Screening 1999 Pneumococcal vaccine <65 (1 of 1 - PPSV23) 2005 09/27/2000, 06/04/2000, 05/04/2000 Regular Well Visit/Exam 18-64 2017 DTaP/Tdap/Td Vaccine (7 - Td or Tdap) 06/16/2020 06/16/2010, 04/21/2004, 03/21/2001, Additional history exists Influenza Vaccine (Season Ended) 2025 08/26/2018, 09/08/2017, 10/06/2016, Additional history exists Varicella Vaccines Completed 08/08/2007, 06/28/2000 Hepatitis B Screening Completed 08/03/2009 , 05/04/2000, 04/03/2000, Additional history exists HPV Vaccines Completed 09/13/2015, 08/09, 07/03/2013 Insurance [address] [place] [id number] [facility] CHOICE PLUS [facility] HMO/PPO [place] [address] [address] [place] [phone] Care Teams Lathe Spotter Relationship Specialty Start Date End Date Lonny Argueta MD PCP - General 04/04/20
--- NOTE | 2025-04-03 09:35 | ECG_ITS ---
Test Date: 2025-04-03 09:42:37 Measurements Intervals [place] Rate: 75 P: 10 CO: 161 QRS: 32 QRSD: 82 T: 1 QT: 351 QTc: 394 Interpretive Statements SINUS RHYTHM POSSIBLE RIGHT VENTRICULAR CONDUCTION DELAY [RSR (QR) IN V1/V2] NONSPECIFIC T WAVE ABNORMALITY No previous ECG available for comparison Electronically Signed On 04-03-2025 14:08:01 CDT by Gorge Hodgson M.D.
== END 2025-04-03 09:22 | disposition home or self-care (01) ==
LOC: ANHCARD 09:23
PROVIDERS: PCP Nurse Practitioner Family; Visit Provider Nurse Practitioner Family
DX: R00.2 Palpitations (principal); R00.1 Bradycardia, unspecified
CPT/HCPCS: 93005

== ENCOUNTER 2025-04-03 11:30 | Emergency (ER) | payer OTHER, SELFPAY ==
--- NOTE | ~2025-04-03 | CT_ITS ---
EXAMINATION: CT brain wo con DATE: 04/03/2025 14:37 INDICATION: Headache TECHNIQUE: Computed tomography (CT) of the head was performed without intravenous contrast. Sagittal and coronal reconstructions were performed. The mA was adjusted according to patient size. Iterative reconstruction technique was employed. The dose-length product was 605.33 mGy-cm. COMPARISON: None FINDINGS: No acute intracranial hemorrhage, acute infarction or abnormal extra axial fluid collection. Ventricl es are normal and symmetric. No mass/mass effect. Mild mucosal thickening the posterior left ethmoid sinus. The orbits and mastoid air cells are normal. IMPRESSION: 1. Normal brain. No acute intracranial process. Reviewed, dictated and finalized at location A.
[2025-04-03 11:33] VITALS: BP 118/73; PULSE 75; RESP 16; O2SAT 100
[2025-04-03 11:37] VITALS: BP 121/72; PULSE 78; RESP 16; TEMP 36.2; O2SAT 100
--- OUTSIDE RECORDS SUMMARY | 2025-04-03 11:38 | XMS_ITS | Referral Summary ---
Author Organization [facility] Address [address] [place] [address] Care Team Providers Care Speeder Tender Name Role Phone Lonny Argueta MD Primary Care Provider +1- [phone] Allergies No known active allergies Medications methylPREDNISol [...] Comments Blood Pressure 90/60 12/21/2022 7:00 PM CLIENT SERVICES ANALYST Pulse 83 12/21/2022 7:00 PM CLIENT SERVICES ANALYST Temperature 36.9 C (98.5 F) 12/21/2022 7:00 PM CLIENT SERVICES ANALYST Respiratory Rate 18 12/21/2022 7:00 PM CLIENT SERVICES ANALYST Oxygen Saturation 99% 12/21/2022 7:00 PM CLIENT SERVICES ANALYST Inhaled Oxygen Concentration - - Weight 63.5 kg (140 lb) 12/21/2022 7:00 PM CLIENT SERVICES ANALYST Height 152.4 cm (5') 12/21/2022 7:00 PM CLIENT SERVICES ANALYST Body Mass Index 27.34 12/21/2022 7:00 PM CLIENT SERVICES ANALYST Plan of Treatment Not on file Insurance [address] CHOICE PLUS Care Teams Speeder Tender Relationship Specialty Start Date End Date Lonny Argueta MD PCP - General 04/04/20
--- OUTSIDE RECORDS SUMMARY | 2025-04-03 11:38 | XMS_ITS | CONTINUITY OF CARE DOCUMENT ---
Author Name kenan grayson Address Unknown Organization [facility] Address [address] [place] [address] Phone [phone] Care Team Providers Care Boil Off Worker Name Role Phone Giovany OCHOA, Ama Unavailable [phone] MARSHA OCHOA, JAMEL Chilel Unavailable [phone] EMILY HURLEY MD Unavailable [phone] INSURANCE PROVIDERS Payer name Policy type / Coverage type [place] red constitution party ID HEALTHCARE AND FAMILY SERVICES Medicaid 1 [id number] AETNA HEALTHCARE Other [id number]
--- OUTSIDE RECORDS SUMMARY | 2025-04-03 11:38 | XMS_ITS | Clinical Summary ---
Author Organization [facility] Address [address] [place] [address] Care Team Providers Care Keel Press Operator Name Role Phone Lonny Argueta MD Primary Care Provider [phone]- [phone] Allergies No known active allergies Medications methylPREDNISol [...] Comments Blood Pressure 90/60 12/21/2022 7:00 PM CLINICAL DATA RESEARCH Pulse 83 12/21/2022 7:00 PM CLINICAL DATA RESEARCH Temperature 36.9 C (98.5 F) 12/21/2022 7:00 PM CLINICAL DATA RESEARCH Respiratory Rate 18 12/21/2022 7:00 PM CLINICAL DATA RESEARCH Oxygen Saturation 99% 12/21/2022 7:00 PM CLINICAL DATA RESEARCH Inhaled Oxygen Concentration - - Weight 63.5 kg (140 lb) 12/21/2022 7:00 PM CLINICAL DATA RESEARCH Height 152.4 cm (5') 12/21/2022 7:00 PM CLINICAL DATA RESEARCH Body Mass Index 27.34 12/21/2022 7:00 PM CLINICAL DATA RESEARCH Plan of Treatment Health Maintenance Due Date [...] 08/09, 07/03/2013 Insurance [address] [place] [id number] [facility] CHOICE PLUS [address] [place] [phone] Care Teams Keel Press Operator Relationship Specialty Start Date End Date Lonny Argueta MD PCP - General 04/04/20
--- OUTSIDE RECORDS SUMMARY | 2025-04-03 11:38 | XMS_ITS | Clinical Summary ---
Author Organization [facility] Address [address] [place] [address] Phone Care Team Providers Care Structural Draftsman Name Role Phone Provider, None Primary Care [...] patient's age to complete this topic Insurance [facility] Care Teams Structural Draftsman Relationship Specialty Start Date End Date Provider, None [place] PCP - General 02/02/24
--- OUTSIDE RECORDS SUMMARY | 2025-04-03 11:38 | XMS_ITS | Clinical Summary ---
Author Organization [facility] Address [address] [place] [address] Care Team Providers Care Satellite Dish Technician Name Role Phone Verito Aguilar MD Primary Care Provider [phone]- [phone] Source Comments [facility],non-owned Affiliates and Associated Physician Practices is amultiple site organization consisting of ambulatory clinics and hospital sitesin [place]. This disclosure is being madepursuant to the Care Everywhere program and may not contain all information available regarding this patient. 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
--- NOTE | 2025-04-03 13:09 | ECG_ITS ---
Test Date: 2025-04-03 15:10:21 Measurements Intervals [place] Rate: 82 P: 30 W[place]: 166 QRS: 48 QRSD: 82 T: 27 QT: 378 QTc: 442 Interpretive Statements SINUS RHYTHM NONSPECIFIC T WAVE ABNORMALITY Compared to ECG 04/03/2025 09:42:37 NO SIGNIFICANT CHANGES Electronically Signed On 04-04-2025 16:29:59 CDT by Gorge Hodgson M.D.
[2025-04-03 14:11] LABS: Basophils Absolute Auto 0.1 K/mm3 (0.0-0.1); Basophils Percent Auto 0.9 % (0.2-1.2); Eosinophils Absolute Auto 0.1 K/mm3 (0-0.3); Eosinophils Percent Auto 1.9 % (0-4.4); Hematocrit 44.2 % (37.0-47.0); Hemoglobin 14.2 g/dL (12.0-15.0); Immature Granulocyte Absolute 0.02 K/mm3 (0.00-0.031); Immature Granulocyte Percent A 0.3 % (0-0.5); Lymphocytes Absolute Auto 1.61 K/mm3 (0.9-3.2); Lymphocytes Percent Auto 23.6 % (18.3-44.2); Mean Corpuscular HGB Conc 32.1 g/dl (32-36); Mean Corpuscular Hemoglobin 28.5 pg (26-34); Mean Corpuscular Volume 88.6 fl (80-100); Mean Platelet Volume 9.7 fl (7.4-10.4); Monocytes Absolute Auto 0.5 K/mm3 (0.1-0.6); Monocytes Percent Auto 6.9 % (2.6-8.5); Neutrophils Absolute Auto 4.5 K/mm3 (1.3-6.7); Neutrophils Percent Auto 66.4 % (45.5-73.1); Platelet Count Result 420 k/mm3 (150-375); Red Blood Count 4.99 M/mm3 (4.2-5.4); Red Cell Distribution Width 13.2 % (11.5-14.5); White Blood Count 6.8 K/mm3 (4.5-10.0)
[2025-04-03 14:24] LABS: Alanine Aminotransferase 18 U/L (6-35); Albumin Level 4.6 g/dL (3.5-5.1); Alkaline Phosphatase 97 U/L (38-126); Anion Gap 7 mmol/L (4-12); Aspartate Amino Transferase 27 U/L (14-36); Bilirubin,Total 0.5 mg/dL (0.2-1.3); Blood Urea Nitrogen 13 mg/dL (7-17); Calcium 9.8 mg/dL (8.4-10.2); Carbon Dioxide 29 mmol/L (22-30); Chloride 102 mmol/L (98-107); Estimated CRCL calculation 121 ml/min; Estimated Glomerular Filt Rate > 60; Glucose 92 mg/dL (65-110); Potassium 3.7 mmol/L (3.4-5.0); Prothrombin Time 13.1 Seconds (11.1-14.7); Sodium 138 mmol/L (137-145)
[2025-04-03 14:24] LABS: Add Urine Microscopic? YES; Appearance Urine Clear (Clear); Bacteria Urine None Seen /hpf; Bilirubin Urine Negative (Negative); Blood Urine Negative (Negative); Color Urine Yellow (Yellow); Glucose Urine UA Negative (Negative); Ketones Urine Negative (Negative); Leukocyte Esterase Ur Trace LEU/UL (Negative); Need Manual Microscopic Reviewed; Nitrate Urine Negative (Negative); Non Pathogenic Casts 0-2; Protein Urine Negative (Negative); Specific Grav Ur 1.009 (1.001-1.035); Squamous Epithelial Cell Urine None Seen /hpf (Few); Urobilinogen Urine 0.2 mg/dL (<2.0); WBC Urine 0-5 /hpf (0-3)
[2025-04-03 14:25] LABS: BEDSIDEPREGUCG Negative (Negative)
[2025-04-03 14:25] LABS: Partial Thromboplastin Time 26.8 Seconds (22.3-36.8)
[2025-04-03] MEDS: SODIUM CHLORIDE 0.9% IV 1,000 ML 999 ML IV CONT (14:26)
[2025-04-03] MEDS: diphenhydrAMINE HCl INJ 50 MG/ML VIAL IV PUSH (14:26)
[2025-04-03] MEDS: PROCHLORPERAZINE EDISYLATE 10 MG/2 ML VIAL IV PUSH (14:26)
[2025-04-03] MEDS: dexAMETHasone SOD PHOS INJ 10 MG/ML 1 ML VIAL IV PUSH (14:26)
[2025-04-03] MEDS: KETOROLAC 15 MG/ML VIAL (*BKC) IV PUSH (14:26)
[2025-04-03 14:35] LABS: Troponin I < 0.012 ng/mL (0.000-0.034)
--- OUTSIDE RECORDS SUMMARY | 2025-04-03 14:42 | XMS_ITS | Clinical Summary ---
Author Organization [facility] Address [address] [place] [address] Care Team Providers Care Weaver Wire Loom Name Role Phone Verito Aguilar MD Primary Care Provider +1- [phone] Source Comments [facility],non-owned Affiliates and Associated Physician Practices is amultiple site organization consisting of ambulatory clinics and hospital sitesin [place], [place], [place]. This disclosure is being madepursuant to the Care Everywhere program and may not contain all information available regarding this patient. 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
--- OUTSIDE RECORDS SUMMARY | 2025-04-03 14:42 | XMS_ITS | Clinical Summary ---
Author Organization [facility] Address [address] [place] [address] Phone Care Team Providers Care Dye House Wheel Operator Name Role Phone Provider, None Primary Care [...] of Phone Billing Address Personal/Family Self 2000 [address] [place] [address] * Guarantor: James Gardner Account Type Relation to Patient Date of Phone Billing Address Workers Comp Self 2000 [address] [place] [address] [facility] GENERIC Care Teams Dye House Wheel Operator Relationship Specialty Start Date End Date Provider, None [place] PCP - General 02/02/24
--- OUTSIDE RECORDS SUMMARY | 2025-04-03 14:42 | XMS_ITS | Referral Summary ---
Author Organization [facility] Address [address] [place] [address] Care Team Providers Care Straddle Bug Driver Name Role Phone oLnny Argueta MD Primary Care Provider +1- [phone] Allergies No known active allergies Medications methylPREDNISol [...] Blood Pressure 90/60 12/21/2022 7:00 PM CLINICAL SERVICES SPECIALIST Pulse 83 12/21/2022 7:00 PM CLINICAL SERVICES SPECIALIST Temperature 36.9 C (98.5 F) 12/21/2022 7:00 PM CLINICAL SERVICES SPECIALIST Respiratory Rate 18 12/21/2022 7:00 PM CLINICAL SERVICES SPECIALIST Oxygen Saturation 99% 12/21/2022 7:00 PM CLINICAL SERVICES SPECIALIST Inhaled Oxygen Concentration - - Weight 63.5 kg (140 lb) 12/21/2022 7:00 PM CLINICAL SERVICES SPECIALIST Height 152.4 cm (5') 12/21/2022 7:00 PM CLINICAL SERVICES SPECIALIST Body Mass Index 27.34 12/21/2022 7:00 PM CLINICAL SERVICES SPECIALIST Plan of Treatment [place] [address] Care Teams Straddle Bug Driver Relationship Specialty Start Date End Date Lonny Argueta MD PCP - General 04/04/20
--- OUTSIDE RECORDS SUMMARY | 2025-04-03 14:42 | XMS_ITS | CONTINUITY OF CARE DOCUMENT ---
Author Name kenan grayson Address Unknown Organization [facility] Address [address] [place] [address] Phone [phone] Care Team Providers Care Sky Cap Name Role Phone Giovany OCHOA, Ama Unavailable MARSHA OCHOA, JAMEL Chilel Unavailable EMILY HURLEY MD Unavailable INSURANCE PROVIDERS Payer name Policy type / Coverage type [place] [employer] party ID HE[employer] AND FAMILY SERVICES Medicaid 1 [id number] [employer] Other [id number]
--- OUTSIDE RECORDS SUMMARY | 2025-04-03 14:42 | XMS_ITS | Clinical Summary ---
Author Organization [facility] Address [address] [place] [address] Care Team Providers Care Dietetics Professor Name Role Phone Lonny Argueta MD Primary Care Provider +1- [phone] Allergies No known active allergies Medications methylPREDNISol [...] Comments Blood Pressure 90/60 12/21/2022 7:00 PM PRODUCTION CLERKS SUPERVISOR Pulse 83 12/21/2022 7:00 PM PRODUCTION CLERKS SUPERVISOR Temperature 36.9 C (98.5 F) 12/21/2022 7:00 PM PRODUCTION CLERKS SUPERVISOR Respiratory Rate 18 12/21/2022 7:00 PM PRODUCTION CLERKS SUPERVISOR Oxygen Saturation 99% 12/21/2022 7:00 PM PRODUCTION CLERKS SUPERVISOR Inhaled Oxygen Concentration - - Weight 63.5 kg (140 lb) 12/21/2022 7:00 PM PRODUCTION CLERKS SUPERVISOR Height 152.4 cm (5') 12/21/2022 7:00 PM PRODUCTION CLERKS SUPERVISOR Body Mass Index 27.34 12/21/2022 7:00 PM PRODUCTION CLERKS SUPERVISOR Plan of Treatment Health Maintenance Due Date [...] 07/03/2013 Insurance [address] [place] [id number] [facility] CHOICE PLUS [address] [place] [id number] Care Teams Dietetics Professor Relationship Specialty Start Date End Date Lonny Argueta MD PCP - General 04/04/20
--- NOTE | 2025-04-03 15:16 | PC.NURSE ---
called lab to add on MAG
--- NOTE | 2025-04-03 15:20 | ED_ITS ---
HPI - General Adult General Chief complaint: Neuro Symptoms/Deficit Stated complaint: Blurred vision, disoriented, palpitations Time Seen by Provider: 04/03/25 13:42 History of Present Illness HPI narrative: Patient is a 24-year-old female who presents emergency department with chief complaint of headache blurry vision and feeling confused. Patient states she woke up with the symptoms this morning reports he also had some palpitations with this as well the patient states that the symptoms have improved still has a headache reports some photophobia and blurry vision. The patient reports no focal deficit but does report she has feels weak all over. Related Data Allergies Allergy/AdvReac Type Severity Reaction Status Date / Time adhesive tape Allergy Intermediate Rash Verified 04/03/25 11:33 Review of Systems 2 Review of Systems: A 10 system review of systems was completed on the patient and is negative except for what is stated in the HPI. Nursing and ancillary documentation was reviewed. [facility] Past Medical History Medical History Constipation Encounter for screening examination for sexually transmitted disease ADHD (attention deficit hyperactivity disorder) PTSD (post-traumatic stress disorder) Anxiety History of chlamydia Surgical History Surgical History [place]erry teeth removed Family History Family History Other Breast cancer paternal aunt Grandparent Cerebrovascular accident maternal grandmother Dementia paternal grandmother Other Diabetes mellitus Heart disease Hypertension Social History Social History Social History: 12/12/24 very confident with medical forms Smoking status: Never smoker Second hand tobacco smoke exposure: No Alcohol intake: never Substance use: current Substance use type: marijuana Do You Feel Safe in your Home?: Yes Lack of Transportation: No Lack of Food: Never True Current Housing: I Have Housing Concerned About Future Housing: No Difficulty Paying Gas/Electric Bills: No Difficulty Paying for Meds: No Currently Unemployed: No Education: Trade/Vocational Certificate Difficulty w/ Childcare or Family Care: No Living arrangements: with family 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 HEAD: Normocephalic, atraumatic. EYES: PERRLA and EOMI. ENT: Nares clear, no rhinorrhea or epistaxis. Mucous membranes moist. NECK: Supple. CHEST: Clear to auscultation. No respiratory distress. HEART: Regular rate and rhythm. No murmur heard. Normal peripheral pulses. ABDOMEN: Soft, nontender, nondistended, normal active bowel sounds. EXTREMITIES: Normal range of motion. No edema. SKIN: Warm, dry, no rash. NEURO: No focal deficits. Alert and oriented x3. PSYCH: Normal mood and affect. Course Vital Signs Vital signs: Vital Signs Pulse Rate 75 04/03/25 11:33 Respiratory Rate 16 04/03/25 11:33 Blood Pressure 118/73 04/03/25 11:33 Pulse Oximetry 100 04/03/25 11:33 Temperature 36.2 C L 04/03/25 11:37 Pulse Rate 78 04/03/25 11:37 Respiratory Rate 16 04/03/25 11:37 Blood Pressure 121/72 04/03/25 11:37 Pulse Oximetry 100 04/03/25 11:37 Oxygen Delivery Room Air 04/03/25 11:37 Medical Decision Making MDM Narrative Medical decision making narrative: Differential diagnosis includes electrolyte abnormality, migraine headache, ACS, dysrhythmia Patient has been monitored on a monitoring manager showed a sinus rhythm without ectopic HCG was negative CT head showed no acute abnormality EKG showed sinus rhythm rate of [address] elevation or ST depression Patient is feeling much better at this time and reports that her symptoms have resolved Vital Signs Vital Signs: Vital Signs Pulse Rate 75 04/03/25 11:33 Respiratory Rate 16 04/03/25 11:33 Blood Pressure 118/73 04/03/25 11:33 Pulse Oximetry 100 04/03/25 11:33 Temperature 36.2 C L 04/03/25 11:37 Pulse Rate 78 04/03/25 11:37 Respiratory Rate 16 04/03/25 11:37 Blood Pressure 121/72 04/03/25 11:37 Pulse Oximetry 100 04/03/25 11:37 Oxygen Delivery Room Air 04/03/25 11:37 Lab Data 04/03/25 13:59 04/03/25 13:59 Labs: Lab Results 04/03/25 04/03/25 04/03/25 Range/Units 13:59 14:02 14:23 WBC 6.8 (4.5-10.0) K/mm3 RBC 4.99 (4.2-5.4) M/mm3 Hgb 14.2 (12.0-15.0) g/dL Hct 44.2 (37.0-47.0) % MCV 88.6 (80-100) fl MCH 28.5 (26-34) pg MCHC 32.1 (32-36) g/dl RDW 13.2 (11.5-14.5) % Plt Count 420 H (150-375) k/mm3 MPV 9.7 (7.4-10.4) fl Immature Gran % (Auto) 0.3 (0-0.5) % Neut % (Auto) 66.4 (45.5-73.1) % Lymph % (Auto) 23.6 (18.3-44.2) % [place] % (Auto) 6.9 (2.6-8.5) % Eos % (Auto) 1.9 (0-4.4) % Baso % (Auto) 0.9 (0.2-1.2) % Lymph # (Auto) 1.61 (0.9-3.2) K/mm3 [place] # (Auto) 0.5 (0.1-0.6) K/mm3 Eos # (Auto) 0.1 (0-0.3) K/mm3 Baso # (Auto) 0.1 (0.0-0.1) K/mm3 Abs Immat Gran (auto) 0.02 (0.00-0.031) K/mm3 Absolute Neuts (auto) 4.5 (1.3-6.7) K/mm3 Absolute Nucleated RBC 0.000 (0.0-0.012) K/mm3 Nucleated RBC % 0.0 (0.0-0.2) % PT 13.1 (11.1-14.7) Seconds INR 1.0 APTT 26.8 (22.3-36.8) Seconds Sodium 138 (137-145) mmol/L Potassium 3.7 (3.4-5.0) mmol/L Chloride 102 (98-107) mmol/L Carbon Dioxide 29 (22-30) mmol/L Anion Gap 7 (4-12) mmol/L BUN 13 (7-17) mg/dL Creatinine 0.59 L (0.7-1.0) mg/dL Estim Creat Clear Calc 121 ml/min Estimated GFR > 60 (59 - ) Glucose 92 (65-110) mg/dL Calcium 9.8 (8.4-10.2) mg/dL Magnesium 2.1 (1.6-2.3) mg/dL Total Bilirubin 0.5 (0.2-1.3) mg/dL AST 27 (14-36) U/L ALT 18 (6-35) U/L Alkaline Phosphatase 97 (38-126) U/L Troponin I < 0.012 (0.000-0.034) ng/mL Total Protein 8.0 (6.3-8.2) g/dL Albumin 4.6 (3.5-5.1) g/dL Urine Color Yellow (Yellow) Urine Appearance Clear (Clear) Urine pH 7.0 (5.0-9.0) Ur Specific [place] 1.009 (1.001-1.035) Urine Protein Negative (Negative) mg/dL Urine Glucose (UA) Negative (Negative) mg/dL Urine Ketones Negative (Negative) mg/dL Ur Blood (Man) Negative (Negative) Urine Nitrate Negative (Negative) Urine Bilirubin Negative (Negative) Urine Urobilinogen 0.2 (<2.0) mg/dL Add Ur Microanalysis Reviewed Leukocyte Esterase Rfl Trace H (Negative) BEBETO/UL Urine RBC 6-10 H (0-2) /hpf Urine WBC 0-5 (0-3) /hpf Ur Squamous Epith Cells None seen (Few) /hpf Urine Bacteria None seen /hpf Urine Casts 0-2 POC Urine HCG, Qual Negative (Negative) 04/03/25 Range/Units 14:23 WBC (4.5-10.0) K/mm3 RBC (4.2-5.4) M/mm3 Hgb (12.0-15.0) g/dL Hct (37.0-47.0) % MCV (80-100) fl MCH (26-34) pg MCHC (32-36) g/dl RDW (11.5-14.5) % Plt Count (150-375) k/mm3 MPV (7.4-10.4) fl Immature Gran % (Auto) (0-0.5) % Neut % (Auto) (45.5-73.1) % Lymph % (Auto) (18.3-44.2) % [place] % (Auto) (2.6-8.5) % Eos % (Auto) (0-4.4) % Baso % (Auto) (0.2-1.2) % Lymph # (Auto) (0.9-3.2) K/mm3 [place] # (Auto) (0.1-0.6) K/mm3 Eos # (Auto) (0-0.3) K/mm3 Baso # (Auto) (0.0-0.1) K/mm3 Abs Immat Gran (auto) (0.00-0.031) K/mm3 Absolute Neuts (auto) (1.3-6.7) K/mm3 Absolute Nucleated RBC (0.0-0.012) K/mm3 Nucleated RBC % (0.0-0.2) % PT (11.1-14.7) Seconds INR APTT (22.3-36.8) Seconds Sodium (137-145) mmol/L Potassium (3.4-5.0) mmol/L Chloride (98-107) mmol/L Carbon Dioxide (22-30) mmol/L Anion Gap (4-12) mmol/L BUN (7-17) mg/dL Creatinine (0.7-1.0) mg/dL Estim Creat Clear Calc ml/min Estimated GFR (59 - ) Glucose (65-110) mg/dL Calcium (8.4-10.2) mg/dL Magnesium (1.6-2.3) mg/dL Total Bilirubin (0.2-1.3) mg/dL AST (14-36) U/L ALT (6-35) U/L Alkaline Phosphatase (38-126) U/L Troponin I (0.000-0.034) ng/mL Total Protein (6.3-8.2) g/dL Albumin (3.5-5.1) g/dL Urine Color (Yellow) Urine Appearance (Clear) Urine pH (5.0-9.0) Ur Specific [place] (1.001-1.035) Urine Protein (Negative) mg/dL Urine Glucose (UA) (Negative) mg/dL Urine Ketones (Negative) mg/dL Ur Blood (Man) (Negative) Urine Nitrate (Negative) Urine Bilirubin (Negative) Urine Urobilinogen (<2.0) mg/dL Add Ur Microanalysis Leukocyte Esterase Rfl (Negative) BEBETO/UL Urine RBC (0-2) /hpf Urine WBC (0-3) /hpf Ur Squamous Epith Cells (Few) /hpf Urine Bacteria /hpf Urine Casts POC Urine HCG, Qual Negative (Negative) Discharge Plan Discharge Clinical Impression: Headache Patient Disposition: Home Condition: Stable Instructions: Antibiotic Form, Acute Headache (ED) Patient Language: Sami Prescriptions: No Action albuterol sulfate 2.5 mg /3 mL (0.083 %) solution for nebulization 2.5 mg inhalation Q4H Qty: 75 3RF fluticasone propionate 50 mcg/actuation spray,suspension 2 spray intranasal DAILY Qty: 16 3RF Rx Instructions: administer into each nostril budesonide 90 mcg/actuation aerosol powdr breath activated 1 inh inhalation Q12H Qty: 1 1RF Airsupra 90-80 mcg/actuation HFA aerosol inhaler 2 inh inhalation Q4H PRN (Reason: shortness of breath) Qty: 10.7 0RF Follow-up/Referrals: Yeni Coreas APRN [Primary Care Provider] - Time of Disposition: 15:35
[2025-04-03 15:29] LABS: Magnesium 2.1 mg/dL (1.6-2.3)
== END 2025-04-03 15:42 | disposition home or self-care (01) ==
PROVIDERS: Physician Assistant; Emergency Provider Emergency Medicine; PCP Nurse Practitioner Family
DX: R51.9 Headache, unspecified (principal)
CPT/HCPCS: 36415; 70450; 80053; 81001; 81025; 83735; 84484; 85025; 85610; 85730; 93005; 96361; 96374; 96375; 99284; J0780; J1100; J1200; J1885; J7030

== ENCOUNTER 2025-05-18 13:17 | Outpatient (CLI) | payer OTHER, SELFPAY ==
--- OUTSIDE RECORDS SUMMARY | 2025-05-18 13:23 | XMS_ITS | Clinical Summary ---
Author Organization [facility] Address [address] [place] [address] Phone Care Team Providers Care Supervisor Film Processing Name Role Phone Provider, None Primary Care [...] Virus (HCV) Screening 2000 Pap Smear 2020 SARS-COV-2 Immunization ( season) 2024 Influenza Immunization (#1) 07/09/202507/2024, 08/26/2018, 09/08/2017, Additional history exists Respiratory Syncytial Virus (RSV) Immunization (Adult) (1 [...] patient's age to complete this topic Insurance [facility] Care Teams Supervisor Film Processing Relationship Specialty Start Date End Date Provider, None [place] PCP - General 02/02/24
[2025-05-18 13:40] LABS: Add Urine Microscopic? NO; Appearance Urine Clear (Clear); Glucose Urine UA Negative (Negative); Leukocyte Esterase Ur Negative LEU/UL (Negative); Nitrate Urine Negative (Negative); Specific Grav Ur 1.014 (1.001-1.035)
--- NOTE | 2025-06-01 10:36 | WPDHOLTEREM ---
Holter/Event Monitor Holter/Event Monitor Date of procedure: 05/18/25 Holter/Event Procedure: 3-7 Day Holter Monitor Indications: Palpitations Conclusion: 1. 3 days holter monitor on 05/18/25. 2. Underlying rhythm is sinus rhythm. HR range 49-129 bpm; average HR 80 bpm. HR at 49 bpm was on 05/21/25 at 4:40 am. 3. There are rare premature supraventricular complexes and rare supraventricular couplets. No supraventricular tachycardia. 4. There are rare premature ventricular complexes. No ventricular tachycardia. 5. No significant pauses greater than 3 seconds. 6. Patient reports 13 episodes of symptoms of irregular beats, chest pain which demonstrate sinus rhythm, HR range 70-94 bpm with 4 episodes with PAC and 1 episode with PAC.
== END 2025-05-18 13:18 | disposition home or self-care (01) ==
PROVIDERS: PCP Nurse Practitioner Family; Referring Provider Obstetrics & Gynecology; Visit Provider Nurse Practitioner Family
DX: R33.9 Retention of urine, unspecified (principal); R00.2 Palpitations
CPT/HCPCS: 81003; 93242

== ENCOUNTER 2025-05-21 17:19 | Outpatient (CLI) | payer OTHER, SELFPAY ==
--- OUTSIDE RECORDS SUMMARY | 2025-05-21 17:22 | XMS_ITS | Clinical Summary ---
Author Organization [facility] Address [address] [place] [address] Phone Care Team Providers Care Infusion Rn Name Role Phone Provider, None Primary Care [...] patient's age to complete this topic Insurance [facility] GENER[facility] Care Teams Infusion Rn Relationship Specialty Start Date End Date Provider, None [place] PCP - General 02/02/24
[2025-05-21 18:18] LABS: Beta HCG Quantitative < 2.39 mIU/ML
[2025-05-21 18:32] LABS: Thyroid Stimulating Hormone 2.600 uIU/mL (0.465-4.680)
[2025-05-23 08:09] LABS: LH 19.8 mIU/mL (.)
== END 2025-05-21 17:20 | disposition home or self-care (01) ==
LOC: ANHLAB 17:20
PROVIDERS: PCP Nurse Practitioner Family; Visit Provider Student in an Organized Health Care Education/Training Program
DX: N91.2 Amenorrhea, unspecified (principal)
CPT/HCPCS: 36415; 83002; 84144; 84443; 84702